=== PATIENT | male | born 1955 | race Caucasian/White ===

== ENCOUNTER 2024-10-10 11:02 | Outpatient (OUT) | payer MEDICARE, OTHER, SELFPAY ==
[2024-10-10 12:32] LABS: Prostate Specific Antigen Scrn 2.91 ng/mL (<=4.00)
== END 2024-10-10 11:03 | disposition home or self-care (01) ==
PROVIDERS: PCP Internal Medicine; Visit Provider Internal Medicine
DX: Z12.5 Encounter for screening for malignant neoplasm of prostate (principal)
CPT/HCPCS: 36415; G0103

== ENCOUNTER 2024-10-31 09:47 | Outpatient (OUT) | payer MEDICARE, OTHER, SELFPAY ==
--- NOTE | 2024-10-31 09:56 | ECG_ITS ---
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 Measurements Intervals Nelson Rate: 64 P: 22 UT: 196 QRS: -19 QRSD: 92 T: 48 QT: 387 QTc: 400 Interpretive Statements SINUS RHYTHM Normal ECG No previous ECG available for comparison Electronically Signed On 10-31-2024 13:15:52 EDT by KOFI GIBBS M.D.
--- OUTSIDE RECORDS SUMMARY | 2024-10-31 10:04 | XMS_ITS | CCD ---
Author Organization [facility] Care Team Providers Care Educational Administrator Name Role Phone OLGAN REYES Primary Care Physician Cher Gregg DR LOGAN REYES Primary Care Unavailable REQUEST, NONE LISTED Attending Unavaila ble REQUEST, NONE LISTED Consulting Unavaila ble REQUEST, NONE LISTED Admitting Unavaila ble LOGAN REYES Referring Unavailable NILLAscencion Attending Unavailable LOGAN REYES Referring Unavailable NILL, Ascencion Bullock Attending Unavailable Allergies Allergy Classification Reported Allergen(s) Allergy Type Date of Onset Reaction(s) Facility (1 source) No Known Medication Allergies; Translations: [No Known Medication Allergies] Propensity to adverse reactions (disorder) [facility] Medications Current Medications Medication Drug Class(es) Dates Sig (Normalized) Sig (Original) Psyllium (1 source) Start: 10-06-2021 take 1 capsule by mouth twice daily Metamucil 1 cap, Oral, BID, Ordered by another provider., Refills(s) 0, Constipation Start Date: 10/06/21 Status: Ordered telmisartan 20 mg oral tablet (2 sources) Angiotensin 2 Receptor Hawa Start: 06-28-2024 take 1 tablet by mouth once daily Telmisartan 20 mg tablet Active 20 MG PO Daily June 28, 2024 12:00am Problems Active Problems Problem Classification Problem Date Documented Date Episodic/Chronic Diabetes mellitus without complication (8 sources) Impaired fasting glycemia; Translations: [Impaired fasting glucose] 09-17-2023 Episodic Disorders of lipid metabolism (8 sources) Pure hypercholesterolemia ; Translations: [Pure hypercholesterolemia , unspecified] 09-21-2023 Chronic Diverticulosis and diverticulitis (2 sources) Diverticula of intestine; Translations: [Diverticulosis of intestine, part unspecified, without perforation or abscess without bleeding] Onset: 12-11-2021 Chronic Essential hypertension (9 sources) Essential hypertension; Translations: [Essential (primary) hypertension] 09-17-2023 Chronic Hemorrhoids (2 sources) Hemorrhoids; Translations: [Unspecified hemorrhoids] Onset: 12-11-2021 Episodic Hyperplasia of prostate (8 sources) Large prostate ; Translations: [Benign prostatic hyperplasia without lower urinary tract symptoms] 09-17-2023 Chronic Other and unspecified benign neoplasm (2 sources) Polyp of colon; Translations: [Polyp of colon] Onset: 12-11-2021 Episodic Other and unspecified benign neoplasm (1 source) History of polyp of colon 10-06-2021 Episodic Other and unspecified benign neoplasm (4 sources) Adenomatous polyp of colon ; Translations: [Benign neoplasm of descending colon] 09-17-2023 Episodic Other and unspecified benign neoplasm (2 sources) Benign neoplasm of descending colon; Translations: [Benign neoplasm of colon] 06-28-2024 Episodic Other diseases of veins and lymphatics (8 sources) Peripheral venous insufficiency; Translations: [Venous insufficiency (chronic) (peripheral)] 09-17-2023 Episodic Other diseases of veins and lymphatics (5 sources) Venous insufficiency (chronic) (peripheral); Translations: [Venous (peripheral) insufficiency, unspecified] 09-21-2023 Episodic Other nutritional; endocrine; and metabolic disorders (2 sources) Morbid obesity; Translations: [Morbid (severe) obesity due to excess calories] 09-17-2023 Chronic Other nutritional; endocrine; and metabolic disorders (2 sources) Obesity; Translations: [Obesity, unspecified] 06-28-2024 Chronic Other nutritional; endocrine; and metabolic disorders (2 sources) Obesity, unspecified; Translations: [Obesity, unspecified] 06-28-2024 Chronic Other screening for suspected conditions (not mental disorders or infectious disease) (4 sources) Encounter for screening for malignant neoplasm of prostate; Translations: [Screening for malignant neoplasms of prostate] 09-21-2023 Episodic Residual codes; unclassified (1 source) Family history of malignant neoplasm of digestive organ; Translations: [Family history of malignant neoplasm of digestive organs] Onset: 12-11-2021 Episodic Residual codes; unclassified (1 source) Family history of cancer of colon 10-06-2021 Episodic Substance-related disorders (4 sources) Tobacco dependence in remission; Translations: [Nicotine dependence, cigarettes, in remission] 09-17-2023 Chronic Unclassified (1 source) Patient encounter status; Translations: [Encounter for health counseling related to travel] Past or Other Problems Problem Classification Problem Date Documented Da te Episodic/Chronic Immunizations and screening for infectious disease (1 source) Contact with and (suspected) exposure to other viral communicable diseases; Translations: [Contact with and (suspected) exposure to other viral communicable diseases Z20.828] Onset: 06-04-2021 Resolved: 06-04-2021 Episodic Other upper respiratory infections (1 source) Acute upper respiratory infection, unspecified; Translations: [Viral upper respiratory illness J06.9] Onset: 06-04-2021 Resolved: 06-04-2021 Episodic Unclassified (1 source) Encounter for health counseling related to travel Onset: 01-21-2022 Resolved: 01-21-2022 Results Test Name Value Interpretation Reference Range Facility General Surgery Office/Clini c Noteon 10-24-2024 General Surgery Office/Clinic Note General Surgery Office/Clinic Note HPI Staff 68 year old male presents on consultation from Dr. Reyes for umbilical hernia. Reports noting bulge approximately 5-6 years ago. Verbalized gradual increase in size. Reports intermittent discomfort. Verbalized this is reducible. Denies nausea, vomiting or bowel changes. No imaging completed. History of Present Illness 68 yo male with h/o htn, bph, referred for enlarging umbilical hernia; patient reports 6 year h/o reducible umbilical hernia, enlarging, sore at times; no imaging, no N/V or bowel changes; no abd operations; no asa or NSAID use; no tobacco use. Review of Systems PHQ Score Initial Depression Screen Score: 0 SCORE ROS - Provider Constitutional: no fever, no sweats, no weight loss. Eyes: yes glasses, no blurred vision, no visual loss. ENMT: no dentures, no hoarseness, no swallowing difficulties, no hearing loss, no ear infection(s), no nose bleeds. Cardiovascular: normal blood pressure, no chest pain, regular heartbeat, no heart murmur. Respiratory: no shortness of breath, no cough, no asthma, no wheezing. Gastrointestinal: no nausea, no vomiting, no diarrhea, no constipation, no blood in stool, no change in bowel habits, no abdominal pain, no hepatitis. Genitourinary: no kidney stones, no urine infection, no dysuria. Musculoskeletal: no pain, no weakness. Skin: no changing moles, no rash, no skin lumps. Neurologic: no seizures, no epilepsy, no headache. Psychiatric: no emotional or psychiatric problem. Heme/Lymph: no bleeding problems, no anemia, no blood clots, no transfusions. Allergy/Immunologic: no swollen lymph nodes/glands, no IV drug abuse. Other: Additional ROS info: Except as noted in the above Review of Systems and in the History of Present Illness, all other systems have been reviewed and are negative or noncontributory. Physical Exam Vitals & Measurements HR: 72(Peripheral) RR: 16 BP: 142/78 HT: 69 in HT: 175.2 cm WT: 128.1 kg WT: 282.412 lb BMI: 41.73 HEENT: normal conjunctiva, sclera clear, no scleral icterus, EOM intact, PERRLA, oral mucosa moist without lesions. Neck: trachea midline, no mass, symmetric, no thyromegaly or nodules, no adenopathy Respiratory: lungs CTA, respirations non labored. Cardiovascular: regular rate and rhythm, no murmur, no pedal edema or varicosities. Gastrointestinal: obese, soft, non distended, no tenderness, no masses, 1.2 cm umbilical defect, reducible 2.5 cm hernia sac, mild tenderness, diastasis recti no, no hepatosplenomegaly; normal bs Lymphatic: no cervical adenopathy, no supraclavicular adenopathy. Musculoskeletal: normal gait, digits and nails without infection, nodes, cyanosis, clubbing. Skin: no rashes, no lesions, no ulcers, no subcutaneous nodules, induration. Psychiatric/Neuro: oriented to time, place, person, judgement normal, affect appropriate for age, insight intact, no focal deficits. Tests: review of old records completed , Discussed surgical options, risks, and possible complications with patient. Assessment/Plan 1. Reducible umbilical hernia (K42.9: Umbilical hernia without obstruction or gangrene) plan primary umbilical herniorrhaphy under anesthesia, informed consent obtained. Ancef 2 gms IV prior to OR SCDs Follow-up No qualifying data available Problem List/Past Medical History Ongoing BMI 40.0-44.9, adult BPH (benign prostatic hyperplasia) Class 3 obesity Diverticulosis Essential hypertension Family history of colon cancer in father Hemorrhoids History of colon polyps Peripheral venous insufficiency Pure hypercholesterolemia Reducible umbilical hernia Historical No qualifying data Procedure/Surgical History Colonoscopy (11/13/2021), Colonoscopy (09/30/2018), Tonsillectomy, Vasectomy. Medications telmisartan 20 mg oral tablet, 20 mg= 1 tab(s), Oral, Daily Allergies No Known Allergies No Known Medication Allergies Social History Alcohol Current. Beer, Liquor. 1-2 times per week., 10/19/2024 Substance Abuse Never., 10/19/2024 Tobacco Never (less than 100 in lifetime) Tobacco Use:. Never Smokeless Tobacco Use:., 10/24/2024 Family History CA - Pancreatic cancer: Sister. Colon cancer: Father. Immunizations Vaccine Date Status SARSCoV2 mRNA(sfqcbwcnu-cjdx-ikms os) vac 09/18/2021 Recorded SARS-CoV-2 (COVID-19) mRNA BNT-162b2 vax 08/28/2021 Recorded Normal [facility] Comment on above: Result Comment: Elec tronically Signed By: ZE KIDD, Ascencion Nobles\Date and Time Signed: 10/24/24 14:22 EDT Basophils Auto (Bld) [#/Vol] on 09-21-2023 Basophils (Bld) [#/Vol] 0.0 10 3/uL 0.0-0.1 [facility] Basophils/100 WBC Auto (Bld) on 09-21-2023 Basophils/100 WBC (Bld) 0.5 % 0.2-2.0 [facility] Cholesterol in LDL Calc [Mas s/Vol]on 09-21-2023 Cholesterol in LDL [Mass/Vol] 120.2 mg/dL [facility] Comment on above: <100 mg/dl [id number] 0-129 mg/dl NEAR OR ABOVE [id number] mg/dl BORDERLINE [id number] mg/dl HIGH>190 mg/dl VERY HIGH Cholesterol in VLDL Calc [Ma ss/Vol]on 09-21-2023 Cholesterol in VLDL [Mass/Vol] 11.8 mg/dL [facility] Eosinophils/100 WBC Auto (Bl d)on 09-21-2023 Eosinophils/100 WBC (Bld) 2.2 % 0.9-7.0 [facility] Erythrocyte distribution wid th Auto (RBC) [Ratio]on 09-21-2023 Erythrocyte distribution width (RBC) [Ratio] 13.6 % 11.0-15.0 [facility] Estimated glomerular filtrat ion rate (GFR) non- Americanon 09-21-2023 GFR/1.73 sq M.predicted among non-blacks MDRD (S/P/Bld) [Vol rate/Area] mL/min/{1.73_m2} >=60 [facility] Globulin Calc (S) [Mass/Vol] on 09-21-2023 Globulin (S) [Mass/Vol] 4.0 g/dL [facility] Glucose mean value [Mass/vol ume] in Blood Estimated from glycated hemoglobinon 09-21-2023 Average glucose Estimated from glycated hemoglobin (Bld) [Mass/Vol] 111 mg/dL [facility] Hematocrit Auto (Bld) [Volum e fraction]on 09-21-2023 Hematocrit (Bld) [Volume fraction] 44.3 % 42.0-54.0 [facility] Hemoglobin [Mass/volume] in Bloodon 09-21-2023 Hemoglobin (Bld) [Mass/Vol] 14.9 g/dL 14.0-18.0 [facility] Laboratory - Chemistry and C hemistry - challengeon 09-21-2023 Albumin [Mass/Vol] 3.7 g/dL 3.4-5.0 [facility] ALP [Catalytic activity/Vol] 51 U/L 46-116 [facility] ALT [Catalytic activity/Vol] 81 U/L 16-63 [facility] AST [Catalytic activity/Vol] 46 U/L 15-37 [facility] Bilirubin [Mass/Vol] 0.9 mg/dL 0.2-1.0 [facility] Calcium [Mass/Vol] 9.0 mg/dL 8.5-10.1 [facility] Chloride [Moles/Vol] 107 mmol/L 98-107 [facility] Cholesterol [Mass/Vol] 183 mg/dL <=200 [facility] Cholesterol in HDL [Mass/Vol] 51 mg/dL 40-60 [facility] Comment on above: > or =60 mg/dl - LOW CARDIOVASCULAR RISK<40 mg/dl - HIGH CARDIOVASCULAR RISK CO2 [Moles/Vol] 27.2 mmol/L 21.0-32.0 [facility] Creatinine [Mass/Vol] 0.93 mg/dL 0.70-1.30 [facility] GFR/1.73 sq M.predicted MDRD (S/P/Bld) [Vol rate/Area] mL/min/{1.73_m2} >=60 [facility] Glucose [Mass/Vol] 92 mg/dL 74-106 [facility] Potassium [Moles/Vol] 4.4 mmol/L 3.5-5.1 [facility] Protein [Mass/Vol] 7.7 g/dL 6.4-8.2 [facility] Sodium [Moles/Vol] 143 mmol/L 136-145 [facility] Triglyceride [Mass/Vol] 59 mg/dL <=150 [facility] Urea nitrogen [Mass/Vol] 17.0 mg/dL 7.0-18.0 [facility] Urea nitrogen/Creatinine [Mass ratio] 18.3 mg/mg [facility] Laboratory - Hematology and Cell countson 09-21-2023 HbA1c (Bld) [Mass fraction] 5.5 % 4.5-6.2 [facility] Comment on above: ADA RECOMMENDED LIMI T 4.0 - 6.0ADA THERAPEUTIC TARGET < 7.0ACTION SUGGESTED> 7.0 Immature granulocytes/100 WBC (Bld) 0.4 % 0.0-0.5 [facility] Leukocytes [#/volume] correc pedro for nucleated erythrocytes in Blood by Automated counon 09-21-2023 WBC corrected for nucl RBC Auto (Bld) [#/Vol] 7.4 10 3/uL 4.0-11.0 [facility] Lymphocytes Auto (Bld) [#/Vo l]on 09-21-2023 Lymphocytes (Bld) [#/Vol] 2.2 10 3/uL 1.2-3.8 [facility] Lymphocytes/100 WBC Auto (Bl d)on 09-21-2023 Lymphocytes/100 WBC (Bld) 29.9 % 20.5-60.0 [facility] MCH Auto (RBC) [Entitic mass ]on 09-21-2023 MCH (RBC) [Entitic mass] 32.2 pg 25.9-34.0 [facility] MCHC Auto (RBC) [Mass/Vol]on 09-21-2023 MCHC (RBC) [Mass/Vol] 33.6 g/dL 29.9-35.2 [facility] MCV Auto (RBC) [Entitic vol] on 09-21-2023 MCV (RBC) [Entitic vol] 95.7 fL 80.0-94.0 [facility] Monocytes Auto (Bld) [#/Vol] on 09-21-2023 Monocytes (Bld) [#/Vol] 0.8 10 3/uL 0.3-0.8 [facility] Monocytes/100 WBC Auto (Bld) on 09-21-2023 Monocytes/100 WBC (Bld) 11.2 % 1.7-12.0 [facility] Neutrophils Auto (Bld) [#/Vo l]on 09-21-2023 Neutrophils (Bld) [#/Vol] 4.2 10 3/uL 1.4-6.5 [facility] Neutrophils/100 WBC Auto (Bl d)on 09-21-2023 Neutrophils/100 WBC (Bld) 55.8 % 43.0-75.0 [facility] No Panel Informationon 09-21 Eosinophils # (Auto) 0.2 10 3/uL 0.0-0.7 [facility] Immature Granulocyte # (Auto) 0.03 10 3/uL 0.00-0.03 [facility] Nucleated Red Blood Cells/100 WBC 0 [facility] Prostate Specific Antigen Screen 2.32 ng/mL <=4.00 [facility] Platelet mean volume Auto (B ld) [Entitic vol]on 09-21-2023 Platelet mean volume (Bld) [Entitic vol] 9.5 fL 9.5-13.5 [facility] Platelets Auto (Bld) [#/Vol] on 09-21-2023 Platelets (Bld) [#/Vol] 186 10 3/uL 150-450 [facility] RBC Auto (Bld) [#/Vol]on RBC (Bld) [#/Vol] 4.63 10 6/uL 4.70-6.10 [facility] Serum or plasma albumin/glob ulin mass ratioon 09-21-2023 Albumin/Globulin [Mass ratio] 0.9 {ratio} [facility] Serum or plasma anion gap de terminationon 09-21-2023 Anion gap [Moles/Vol] 13.2 mmol/L [facility] Serum or plasma total choles terol/high density lipoprotein (HDL) cholesterol mass consuelo 09-21-2023 Cholesterol.total/C holesterol in HDL [Mass ratio] 3.6 {ratio} [facility] Comment on above: 3.3 - 4.4 LOW RISK4. 4 - 7.1 AVERAGE RISK7.1 - 11.0 MODERATE RISK>11.0 HIGH RISK CBC AUTO DIFFon 09-23-2022 BASO # 0.0 103/ul Normal 0.0-0.1 [facility] Comment on above: Performed By: #### D ATCBC #### [facility] [address] [place] [address] Dr. Rhea Alexandre Basophils/100 WBC (Bld) 0.5 % Normal 0.2-2.0 [facility] Comment on above: Performed By: #### D ATCBC #### [facility] [address] [place] [address] Dr. Rhea lAexandre EO # 0.1 103/ul Normal 0.0-0.7 [facility] Comment on above: Performed By: #### D ATCBC #### [facility] [address] [place] [address] Dr. Rhea Alexandre Eosinophils/100 WBC (Bld) 2.0 % Normal 0.9-7.0 [facility] Comment on above: Performed By: #### D ATCBC #### [facility] [address] [place] [address] Dr. Rhea Alexandre Erythrocyte distribution width (RBC) [Ratio] 13.3 % Normal 11.0-15.0 [facility] Comment on above: Performed By: #### D ATCBC #### [facility] [address] [place] [address] Dr. Rhea Alexandre Hematocrit (Bld) [Volume fraction] 44.8 % Normal 42.0-54.0 [facility] Comment on above: Performed By: #### D ATCBC #### [facility] [address] [address] [address] Rhea Alexandre Hemoglobin (Bld) [Mass/Vol] 15.4 g/dL Normal 14.0-18.0 [facility] Comment on above: Performed By: #### D ATCBC #### [facility] [address] [address] [address] Rhea Alexandre IG # 0.01 10e3/ul Normal 0.00-0.03 [facility] Comment on above: Performed By: #### D ATCBC #### [facility] [address] [place] [address] Dr. Rhea Alexandre IG % 0.2 % Normal 0.0-0.5 [facility] Comment on above: Performed By: #### D ATCBC #### [facility] [address] [place] [address] Dr. Rhea Alexandre LYMPH # 2.4 103/ul Normal 1.2-3.8 [facility] Comment on above: Performed By: #### D ATCBC #### [facility] [address] [place] [address] Dr. Rhea Alexandre Lymphocytes/100 WBC (Bld) 36.6 % Normal 20.5-60.0 [facility] Comment on above: Performed By: #### D ATCBC #### [facility] [address] [place] [address] Dr. Rhea Alexandre MCH (RBC) [Entitic mass] 32.0 pg Normal 25.9-34.0 [facility] Comment on above: Performed By: #### D ATCBC #### [facility] [address] [place] [address] Dr. Rhea Alexandre MCHC (RBC) [Mass/Vol] 34.4 g/dL Normal 29.9-35.2 [facility] Comment on above: Performed By: #### D ATCBC #### [facility] [address] [address] [address] Rhea Alexandre MCV (RBC) [Entitic vol] 92.9 fL Normal 80.0-94.0 [facility] Comment on above: Performed By: #### D ATCBC #### [facility] [address] [address] [address] Rhea Alexandre MONO # 0.8 103/ul Normal 0.3-0.8 [facility] Comment on above: Performed By: #### D ATCBC #### [facility] [address] [place] [address] Dr. Rhea Alexandre Monocytes/100 WBC (Bld) 11.9 % Normal 1.7-12.0 [facility] Comment on above: Performed By: #### D ATCBC #### [facility] [address] [place] [address] Dr. Rhea Alexandre NEUT # 3.2 103/ul Normal 1.4-6.5 [facility] Comment on above: Performed By: #### D ATCBC #### [facility] [address] [place] [address] Dr. Rhea Alexandre Neutrophils/100 WBC (Bld) 48.8 % Normal 43.0-75.0 [facility] Comment on above: Performed By: #### D ATCBC #### [facility] [address] [place] [address] Dr. Rhea Alexandre Platelet mean volume (Bld) [Entitic vol] 9.6 fL Normal 9.5-13.5 [facility] Comment on above: Performed By: #### D ATCBC #### [facility] [address] [place] [address] Dr. Rhea Alexandre PLT 193 103/ul Normal 150-450 [facility] Comment on above: Performed By: #### D ATCBC #### [facility] [address] [place] [address] Dr. Rhea Aleaxndre RBC 4.82 106/ul Normal 4.70-6.10 [facility] Comment on above: Performed By: #### D ATCBC #### [facility] [address] [place], [place] [id number] Dr. Rhea Alexandre WBC 6.5 103/ul Normal 4.0-11.0 [facility] Comment on above: Performed By: #### D ATCBC #### [facility] [address] [place] [address] Dr. Rhea Alexandre RAHUL- BMP WITH LIPIDon 2022 Anion gap [Moles/Vol] 10.9 mmol/L Normal [facility] Comment on above: Performed By: #### D ATBMP, DATPSA #### [facility] [address] [place] [address] Dr. Rhea Alexandre Calcium [Mass/Vol] 9.1 mg/dL Normal 8.5-10.1 [facility] Comment on above: Performed By: #### D ATBMP, DATPSA #### [facility] [address] [place] [address] Dr. Rhea Alexandre Chloride [Moles/Vol] 104 mmol/L Normal 98-107 [facility] Comment on above: Performed By: #### D ATBMP, DATPSA #### [facility] [address] [place] [address] Dr. Rhea Alexandre Cholesterol [Mass/Vol] 155 mg/dL Normal <=200 [facility] Comment on above: Performed By: #### D ATBMP, DATPSA #### [facility] [address] [place] [address] Dr. Rhea Alexandre Cholesterol in HDL [Mass/Vol] 50 mg/dL Normal 40-60 [facility] Comment on above: Performed By: #### D ATBMP, DATPSA #### [facility] [address] [place] [address] Dr. Rhea Alexandre Cholesterol in LDL [Mass/Vol] 93.4 mg/dL Normal [facility] Comment on above: Performed By: #### D ATBMP, DATPSA #### [facility] [address] [place] [address] Dr. Rhea Alexandre CO2 [Moles/Vol] 29.5 mmol/L Normal 21.0-32.0 [facility] Comment on above: Performed By: #### D ATBMP, DATPSA #### [facility] [address] [address] [address] Rhea Alexandre Creatinine [Mass/Vol] 0.89 mg/dL Normal 0.70-1.30 [facility] Comment on above: Performed By: #### D ATBMP, DATPSA #### [facility] [address] [address] [address] Rhea Alexandre EGFR-AF MALAGASY >60 Normal >=60 [facility] Comment on above: Performed By: #### D ATBMP, DATPSA #### [facility] [address] [address] [address] Rhea Alexandre EGFR-NON AF MALAGASY >60 Normal >=60 [facility] Comment on above: Performed By: #### D ATBMP, DATPSA #### [facility] [address] [address] [address] Rhea Alexandre Glucose [Mass/Vol] 102 mg/dL Normal 74-106 [facility] Comment on above: Performed By: #### D ATBMP, DATPSA #### [facility] [address] [address] [address] Rhea Alexandre HDL NORMAL > or = 60 mg/dl - LO W CARDIOVASCULAR RISK <40 mg/dl - HIGH CARDIOVASCULAR RISK Normal [facility] Comment on above: Performed By: #### D ATBMP, DATPSA #### [facility] [address] [address] [address] Rhea Alexandre LDL CALC NORMAL SEE BELOW Normal [facility] Comment on above: Result Comment: <100 mg/dl OPTIMAL 100 - 129 mg/dl NEAR OR ABOVE OPTIMAL 130 - 159 mg/dl BORDERLINE HIGH 160 - 189 mg/dl HIGH >190 mg/dl VERY HIGH Performed By: #### D ATBMP, DATPSA #### [facility] [facility] [address] [address] [address] Rhea Alexandre Potassium [Moles/Vol] 4.4 mmol/L Normal 3.5-5.1 [facility] Comment on above: Performed By: #### D ATBMP, DATPSA #### [facility] [address] [address] [address] Rhea Alexandre Sodium [Moles/Vol] 140 mmol/L Normal 136-145 [facility] Comment on above: Performed By: #### D ATBMP, DATPSA #### [facility] [address] [address] [address] Rhea Alexandre Triglyceride [Mass/Vol] 58 mg/dL Normal <=150 [facility] Comment on above: Performed By: #### D ATBMP, DATPSA #### [facility] [address] [address] [address] Rhea Alexandre Urea nitrogen [Mass/Vol] 18.0 mg/dL Normal 7.0-18.0 [facility] Comment on above: Performed By: #### D ATBMP, DATPSA #### [facility] [address] [place] [address] Dr. Rhea Alexandre Urea nitrogen/Creatinine [Mass ratio] 20.2 mg/mg Normal [facility] Comment on above: Performed By: #### D ATBMP, DATPSA #### [facility] [address] [address] [address] Rhea Alexandre VLDL CALC 11.6 mg/dL Normal [facility] Comment on above: Performed By: #### D ATBMP, DATPSA #### [facility] [address] [address] [address] Rhea Alexandre COVID Quick Testingon 2021 Result Negative [facility] Other COVID Quick Testingon 2020 Result Negative [facility] Other Vital Signs Date Time Vital Sign Value Performing Clinician Facility 10-10-2024 10:05-0500 Body height 175.26 cm [facility] 10-10-2024 10:05-0500 Body mass index (BMI) [Ratio] 40.8 kg/m2 [facility] 10-10-2024 10:05-0500 Body temperature 98.1 [degF] [facility] 10-10-2024 10:05-0500 Body weight 125.64 kg [facility] 10-10-2024 10:05-0500 Diastolic blood pressure 72 mm[Hg] [facility] 10-10-2024 10:05-0500 Heart rate 84 /min [facility] 10-10-2024 10:05-0500 SaO2% (BldA) [Mass fraction] 97 % [facility] 10-10-2024 10:05-0500 Systolic blood pressure 128 mm[Hg] [facility] 06-28-2024 10:10-0500 Body height 175.26 cm [facility] 06-28-2024 10:10-0500 Body mass index (BMI) [Ratio] 40.8 kg/m2 [facility] 06-28-2024 10:10-0500 Body weight 125.64 kg [facility] 06-28-2024 10:10-0500 Diastolic blood pressure 80 mm[Hg] [facility] 06-28-2024 10:10-0500 Heart rate 71 /min [facility] 06-28-2024 10:10-0500 Respiratory rate 12 /min [facility] 06-28-2024 10:10-0500 Systolic blood pressure 160 mm[Hg] [facility] 12-20-2023 08:57-0400 Body height 175.26 cm [facility] 12-20-2023 08:57-0400 Body mass index (BMI) [Ratio] 40.4 kg/m2 [facility] 12-20-2023 08:57-0400 Body weight 124.05 kg [facility] 12-20-2023 08:57-0400 Diastolic blood pressure 88 mm[Hg] [facility] 12-20-2023 08:57-0400 Heart rate 64 /min [facility] 12-20-2023 08:57-0400 Respiratory rate 12 /min [facility] 12-20-2023 08:57-0400 Systolic blood pressure 159 mm[Hg] [facility] 09-21-2023 09:08-0500 Body height 175.26 cm [facility] 09-21-2023 09:08-0500 Body mass index (BMI) [Ratio] 42.2 kg/m2 [facility] 09-21-2023 09:08-0500 Body weight 129.72 kg [facility] 09-21-2023 09:08-0500 Diastolic blood pressure 94 mm[Hg] [facility] 09-21-2023 09:08-0500 Heart rate 67 /min [facility] 09-21-2023 09:08-0500 Systolic blood pressure 165 mm[Hg] [facility] 12-11-2021 14:56-0400 Diastolic blood pressure 80 mm[Hg] Yasemin Paul [facility] 12-11-2021 14:56-0400 Mean blood pressure 101 mm[Hg] Yasemin Paul [facility] 12-11-2021 14:56-0400 Systolic blood pressure 142 mm[Hg] Yasemin Paul [facility] 12-11-2021 14:52-0400 Blood Pressure Location Yasemin Paul [facility] 12-11-2021 14:52-0400 Body temperature 98.06 [degF] Yasemin Paul [facility] 12-11-2021 14:52-0400 Diastolic blood pressure 84 mm[Hg] Yasemin Paul [facility] 12-11-2021 14:52-0400 Heart rate 81 /min Yasemin Paul [facility] 12-11-2021 14:52-0400 SaO2% (BldA) [Mass fraction] 92 % Yasemin Miller [facility] 12-11-2021 14:52-0400 Systolic blood pressure 148 mm[Hg] Yasemin Miller [facility] 06-04-2021 11:30-0400 Body height 175.26 cm Cher Stewartmond Other [email or web address] Other 06-04-2021 11:30-0400 Body mass index (BMI) [Ratio] 41.34 kg/m2 Cher Marysol Other [email or web address] Other 06-04-2021 11:30-0400 Body temperature 96.8 [degF] Cher Gregg Other [email or web address] Other 06-04-2021 11:30-0400 Body weight 127.01 kg Cher Gregg Other [email or web address] Other 06-04-2021 11:30-0400 Respiratory rate 18 /min Cher Marysol Other [email or web address] Other 06-04-2021 11:30-0400 SaO2% (BldA) [Mass fraction] 97 % Cher Marysol Other [email or web address] Other Encounters Encounter Date Encounter Type Care Provider Facility Start: 10-24-2024 End: 10-24-2024 ambulatory LOGAN BALL Facility: [facility] Start: 10-12-2024 ambulatory LOGAN BALL Facility: [facility] Start: 10-10-2024 End: 10-10-2024 ambulatory [facility] Work Phone: Start: 10-10-2024 End: 10-10-2024 Patient encounter procedure [facility] Work Phone: Start: 10-08-2024 Patient encounter procedure [facility] Start: 06-28-2024 End: 06-28-2024 ambulatory [facility] Work Phone: Start: 06-28-2024 End: 06-28-2024 Patient encounter procedure [facility] Work Phone: Start: 06-21-2024 Non-patient / Non-visit [facility] Work Phone: Start: 12-20-2023 End: 12-20-2023 ambulatory [facility] Work Phone: Start: 12-20-2023 End: 12-20-2023 Patient encounter procedure [facility] Work Phone: Start: 09-21-2023 End: 09-21-2023 ambulatory [facility] Work Phone: Start: 09-21-2023 End: 09-21-2023 [facility] Work Phone: Start: 09-23-2022 End: 09-24-[address] LOGAN REYES Facility:[facility] Start: 01-21-2022 End: 01-21-2022 ambulatory Cher Gregg Other [employer] [employer] Other Start: 01-21-2022 Nursing evaluation o f patient and report Cher Gregg [facility] Start: 12-11-2021 End: 12-11-2021 Patient encounter procedure Yasemin Miller [facility] Start: 06-04-2021 (URG) Urgent Care Visit Cher Gregg [facility] Procedures Date Procedure Procedure Detail Performing Clinician Start: 09-23-[address] PRIETO [facility] Comment on above: Performed By: #### D ATBMP, DATPSA #### [facility] [address] [address] [address] Rhea Alexandre Start: 09-30-2018 Colonoscopy Yasemin lindaz Comment on above: POLYPS X 3 Plan of Treatment Date Care Activity Detail Author Comprehensive metabo lic 2000 panel - Serum or Plasma [facility] Immunizations Immunization Date Immunization Notes Care Provider Fa cility 08-28-2021 COVID-19 mRNA, Comir rui (Pfizer) [facility] Payers Date Payer Category Payer Unknown [id number] 1958 Self-pay 1955 Unknown [id number] 1955 Unknown [id number] [facility] [id number] Medicare [id number] Unknown [id number] Social History Date Type Detail Facility Start: 12-11-2021 Tobacco smoking status Never s moked tobacco (finding) [facility] Other Tobacco smoking status Never [facility] Sex Assigned At Male SPARQ [facility] Other Start: 09-17-2023 End: 09-17-2023 Tobacco smoking status NHIS Ex-smoker (finding) [facility] Start: 1955 Sex Assigned At Male [facility] Start: 06-28-2024 End: 10-10-2024 Sex Male (finding) [facility] Evaluation note 01-21-2022 Note Date & Type Note Facility 01-21-2022 Evaluation note Encounter Date Diagnosis Assessment Notes Jan, Travel advice encounter (ICD-10 - Z71.84) [email or web address] Other Hospital Discharge instructions 12-11-2021 Note Date & Type Note Facility 12-11-2021 Hospital Discharg e instructions Patient Education 12/11/2021 15:06:51 Colon Polyps Colon Polyps Polyps are tissue growths inside the body. Polyps can grow in many places, including the large intestine (colon). A polyp may be a round bump or a mushroom-shaped growth. You could have one polyp or several. Most colon polyps are noncancerous (benign). However, some colon polyps can become cancerous over time. Finding and removing the polyps early can help prevent this. What are the causes? The exact cause of colon polyps is not known. What increases the risk? You are more likely to develop this condition if you: Have a family history of colon cancer or colon polyps. Are older than 50 or older than 45 if you are . Have inflammatory bowel disease, such as ulcerative colitis or Crohn's disease. Have certain hereditary conditions, such as: ?Familial adenomatous polyposis. ?Lopez syndrome. ?Turcot syndrome. ?Peutz Jeghers syndrome. Are overweight. Smoke cigarettes. Do not get enough exercise. Drink too much alcohol. Eat a diet that is high in fat and red meat and low in fiber. Had childhood cancer that was treated with abdominal radiation. What are the signs or symptoms? Most polyps do not cause symptoms. If you have symptoms, they may include: Blood coming from your rectum when having a bowel movement. Blood in your stool. The stool may look dark red or black. Abdominal pain. A change in bowel habits, such as constipation or diarrhea. How is this diagnosed? This condition is diagnosed with a colonoscopy. This is a procedure in which a lighted, flexible scope is inserted into the anus and then passed into the colon to examine the area. Polyps are sometimes found when a colonoscopy is done as part of routine cancer screening tests. How is this treated? Treatment for this condition involves removing any polyps that are found. Most polyps can be removed during a colonoscopy. Those polyps will then be tested for cancer. Additional treatment may be needed depending on the results of testing. Follow these instructions at home: Lifestyle Maintain a healthy weight, or lose weight if recommended by your health care provider. Exercise every day or as told by your health care provider. Do not use any products that contain nicotine or tobacco, such as cigarettes and e-cigarettes. If you need help quitting, ask your health care provider. If you drink alcohol, limit how much you have: ?0 1 drink a day for women. ? 0 2 drinks a day for men. Be aware of how much alcohol is in your drink. In the [place] one drink equals one 12 oz bottle of beer (355 mL), one 5 oz glass of wine (148 mL), or one 1 oz shot of hard liquor (44 mL). Eating and drinking Eat foods that are high in fiber, such as fruits, vegetables, and whole grains. Eat foods that are high in calcium and vitamin D, such as milk, cheese, yogurt, eggs, liver, fish, and broccoli. Limit foods that are high in fat, such as fried foods and desserts. Limit the amount of red meat and processed meat you eat, such as hot dogs, sausage, lees, and lunch meats. General instructions Keep all follow-up visits as told by your health care provider. This is important. ?This includes having regularly scheduled colonoscopies. ?Talk to your health care provider about when you need a colonoscopy. Contact a health care provider if: You have new or worsening bleeding during a bowel movement. You have new or increased blood in your stool. You have a change in bowel habits. You lose weight for no known reason. Summary Polyps are tissue growths inside the body. Polyps can grow in many places, including the colon. Most colon polyps are noncancerous (benign), but some can become cancerous over time. This condition is diagnosed with a colonoscopy. Treatment for this condition involves removing any polyps that are found. Most polyps can be removed during a colonoscopy. This information is not intended to replace advice given to you by your health care provider. Make sure you discuss any questions you have with your health care provider. Document Released: 04/21/2005 Document Revised: 11/10/2018 Document Reviewed: 11/10/2018 [employer] Patient Education 2020 [employer]. Follow Up Care 12/08/2021 14:58:10 With:Yasemin Miller CNP Address: When:1 year only if needed [facility] Evaluation note 06-04-2021 Note Date & Type Note Facility 06-04-2021 Evaluation note Encounter Date Diagnosis Assessment Notes May, Contact with and (suspected) exposure to other viral communicable diseases (ICD-10 - Z20.828) May, Viral upper respiratory illness (ICD-10 - J06.9) May, Other Additional time spent conducting pre-visit phone call, screening for symptoms, instructions on social distancing, application and removal of PPE, and cleaning of examination room, equipment and supplies was preformed. Patient education given for testing methodology and results. Patient care instructions given in writting by [facility] document. [email or web address] Other Evaluation + Plan note Note Date & Type Note Facility Evaluation + Plan note No data available for this section [facility] Evaluation note Note Date & Type Note Facility Evaluation note Diagnosis Onset Date Chronic venous insufficiency acute IFG (impaired fasting glucose) acute Primary hypertension acute Pure hypercholesterolemia, unspecified acute Screening PSA (prostate specific antigen) noneactive [facility] Work Phone: Evaluation note Note Date & Type Note Facility Evaluation note Diagnosis Onset Date Chronic venous insufficiency acute IFG (impaired fasting glucose) acute Primary hypertension acute Pure hypercholesterolemia, unspecified acute Medicare annual wellness visit, initial noneactive Screening PSA (prostate specific antigen) noneactive Chronic venous insufficiency acute Primary hypertension acute [facility] Work Phone: Evaluation note Note Date & Type Note Facility Evaluation note Diagnosis Onset Date Resolution Adenomatous polyp of descending colon acute June 28, 2024 9:52am Chronic venous insufficiency acute June 28, 2024 9:52am Hypercholesterolemia acute 2023 9:52am IFG (impaired fasting glucose) acute June 28, 2024 9:52am Obesity acute June 28, 2024 9:52am Primary hypertension acute 2023 9:52am [facility] Work Phone: Evaluation note Note Date & Type Note Facility Evaluation note Diagnosis Onset Date Resolution Adenomatous polyp of descending colon acute October 10, 2024 9:53am Chronic venous insufficiency acute October 10, 2024 9:53am Hypercholesterolemia acute 2024 9:53am IFG (impaired fasting glucose) acute October 10, 2024 9:53am Medicare annual wellness visit, subsequent acute October 10 9:53am Obesity acute October 10 9:53am Primary hypertension acute 2024 9:53am Screening PSA (prostate specific antigen) acute October 10 9:53am [facility] Work Phone: History general Narrative - Reported Note Date & Type Note Facility History general Narrative - Reported Type Surgical History vasectomy Surgical History tonsillectomy Hospitalization History see above [email or web address] Other Summary Purpose Family History No Family History Records Found Relationship Condition Age at Onset Recorded Date/T dewayne father Unknown Malignant neoplasm Unknown Not Specified Unknown Heart disease Unknown Myocardial infarction Unknown Relationship Condition Age at Onset Recorded Date/T dewayne father Unknown Malignant neoplasm Unknown mother Unknown Heart disease Unknown Myocardial infarction Unknown Advance Directives No Advanced Directives Records Found Advance Directive Response Recorded Date/ Time Advance Directives No August 28, 2023 10:17am Advance Directive Response Recorded Date/ Time Advance Directives No August 28, 2023 11:17am Chief Complaint and Reason for Visit Chief Complaint MCR Wellness Reason for Visit Chronic venous insuf ficiency IFG (impaired fasting glucose) Primary hypertension Pure hypercholesterolemia, unspecified Screening PSA (prostate specific antigen) Chief Complaint MCR Wellness 3 month follow up Reason for Visit Chronic venous insuf ficiency IFG (impaired fasting glucose) Primary hypertension Pure hypercholesterolemia, unspecified Medicare annual wellness visit, initial Screening PSA (prostate specific antigen) Chronic venous insufficiency Primary hypertension Chief Complaint Admit Date CC Adult Risk Stratification June [id number] 1:32pm 6 month f/u June 28, 2024 9:52am Reason for Visit Admit Date Adenomatous polyp of descending colon No [email or web address] 9:52am Chronic venous insufficiency June 282023 9:52am Hypercholesterolemia June 28, 2024 9:52am IFG (impaired fasting glucose) June 28, 2024 9:52am Obesity June 28, 2024 9:52am Primary hypertension June 28, 2024 9:52am Chief Complaint Admit Date Wellness October 10, 2024 9:53 am Reason for Visit Admit Date Adenomatous polyp of descending colon [facility] 2024 9:53am Chronic venous insufficiency October 10, 2024 9:53am Hypercholesterolemia October 10, 2024 9:5 3am IFG (impaired fasting glucose) October 9:53am Medicare annual wellness visit, subseque nt October 10, 2024 9:53am Obesity October 10, 2024 9:53 am Primary hypertension October 10, 2024 9:5 3am Screening PSA (prostate specific antigen ) October 10, 2024 9:53am Additional Source Comments REASON FOR VISIT (unrecogniz ed section and content) #7 MAROON DODGE, COUGH, RUNN Y NOSECOVID TEST, DENIES SXS (unrecognized sect ion and content) No Status Records FoundNo Status Records Found INFORMATION SOURCE (unrecogn ized section and content) DATE CREATED AUTHOR 09/24/2022 [facility] DATE CREATED AUTHOR 'S ORGANIZ ATION 10/25/2024 [facility] Teams (unrecognized sec tion and content) Team Status: Active Member Role Status Dates Logan Reyes DO Primary Care Provider Active Team Status: Inactive Member Role Status Dates Logan Reyes DO Primary Care Provide r, Attending Provider Active Start: October 10, 2024 End: October 10, 2024 Team Status: Active Member Role Status Dates Logan Reyes DO Primary Care Provide r, Attending Provider Active Start: June 21, 2024 Team Status: Inactive Member Role Status Dates Logan Reyes DO Primary Care Provide r, Attending Provider Active Start: June 28, 2024 End: June 28, 2024 Team Status: Inactive Member Role Status Dates Logan Reyes DO Primary Care Provide r, Attending Provider Active Start: September 21, 2023 End: September 21, 2023 Team Status: Inactive Member Role Status Dates Logan Reyes DO Primary Care Provide r, Attending Provider Active Start: December 20, 2023 End: December 20, 2023 Goals (unrecognized section and content) Goals may be documented in a n alternate section FOR RECORDS PERTAINING TO PATIENTS WHO ARE OR HAVE BEEN ENROLLED IN A CHEMICAL DEPENDENCY/SUBSTANCEABUSE PROGRAM, SOME INFORMATION MAY BE OMITTED. This clinical summary was aggregated from multiple sources. Caution should be exercised in using it in the provision of clinical care. This summary normalizes information from multiple sources, and as a consequence, information in this document may materially change the coding, format and clinical context of patient data. In addition, data may be omitted in some cases. CLINICAL DECISIONS SHOULD BE BASED ON THE PRIMARY CLINICAL RECORDS. [facility] [facility]. provides no warranty or guarantee of the accuracy or completeness of information in this document.
== END 2024-10-31 09:48 | disposition home or self-care (01) ==
LOC: PST 09:47
PROVIDERS: PCP Internal Medicine; Visit Provider Surgery
DX: Z01.810 Encounter for preprocedural cardiovascular examination (principal); K42.9 Umbilical hernia without obstruction or gangrene
CPT/HCPCS: 93005

== ENCOUNTER 2024-11-08 07:57 | Day surgery (SDC) | payer MEDICARE, OTHER, SELFPAY ==
[2024-10-31 10:18] VITALS: BP 141/81; PULSE 69; TEMP 36.4; O2SAT 98; BMI 38.8
[2024-11-08] VITALS (8 sets, daily range): BP systolic 119–163; BP diastolic 59–106; PULSE 68–72; TEMP 36.5–36.7; O2SAT 95–99; BMI 39.6
--- NOTE | 2024-11-08 | OP_ITS ---
OPERATION DATE: 11/08/2024 PREOPERATIVE DIAGNOSIS: Umbilical hernia. POSTOPERATIVE DIAGNOSIS: Umbilical hernia. PROCEDURE: Primary umbilical herniorrhaphy. SURGEON: Ascencion Guillory M.D. ANESTHESIA: General endotracheal as well as rectus sheath block per Dr. Jha. ESTIMATED BLOOD LOSS: Less than 20 mL. INDICATIONS AND CONSENT: Patient is a 68-year-old male with a long history of reducible umbilical hernia that has become increasingly symptomatic. Indications, risks, benefits, alternatives of proceeding with primary repair due to the defect being 1.5 cm was explained extensively to the patient, including the risks of bleeding, infection, scarring, pain, recurrence, bowel injury, blood clot, pulmonary embolus, heart attack, anesthetic complications, need for further surgery. All of his questions were answered. Informed consent was obtained. PROCEDURE: Patient brought to the operating room, placed in the supine position. He had previously undergone rectus sheath block in the pre-op area. General anesthesia was induced. He was prepped and draped in the usual sterile fashion. A curvilinear incision was made in the superior aspect of the umbilicus using the scalpel blade and carried down through subcutaneous tissue using sharp dissection as well as electrocautery. This was carried down to the fascia. The fascial defect was freed up circumferentially. The hernia sac was freed up and detached from the umbilicus. It did contain a small amount of incarcerated omentum, which was freed up and reduced into the abdomen. The excess sac was then excised and sent off to Pathology. The incision was then closed transversely with interrupted #1 Prolene sutures, as well as interrupted 0 Vicryl sutures. The wound was irrigated. There was good hemostasis. The subcutaneous tissues were infiltrated with the remaining Exparel solution. The umbilicus was tacked back down to the fascia using 2-0 Monocryl suture. The subcutaneous tissue was re-approximated using interrupted 3-0 Monocryl suture. The skin was closed with a running 4-0 subcuticular Monocryl suture and skin glue. Sterile pressure dressings were applied. Sponge and needle counts were correct x3 per nursing personnel. Patient tolerated procedure well, was extubated and sent to recovery room in good condition. Abdominal binder was applied to the abdomen as well. CC: Dr. Tyler COLE
--- OUTSIDE RECORDS SUMMARY | 2024-11-08 08:12 | XMS_ITS | CCD ---
Author Organization [facility] Care Team Providers Care Specialized Language Instructor Name Role Phone LOGAN REYES Primary Care Physician [phone] LOGAN REYES Primary Care [...] Medication Allergies] Propensity to adverse reactions (disorder) [facility] Repository Medications Current Medications Medication Drug [...] cancer: Father. Immunizations Vaccine Date Status SARSCoV2 mRNA(zpmgjfjbs-yscm-slwt os) vac 09/18/2021 Recorded SARS-CoV-2 (COVID-19) mRNA BNT-162b2 vax 08/28/2021 Recorded Normal Goel [facility] Comment on above: Result Comment: Elec tronically Signed By: ZE KIDD, Ascencion Nobles\Date and Time Signed: 10/24/24 14:22 EDT Basophils Auto (Bld) [#/Vol] on 09-21-2023 Basophils (Bld) [#/Vol] 0.0 10 3/uL 0.0-0.1 [facility] Basophils/100 WBC Auto (Bld) on 09-21-2023 Basophils/100 WBC (Bld) 0.5 % 0.2-2.0 [facility] Cholesterol in LDL Calc [Mas s/Vol]on 09-21-2023 Cholesterol in LDL [Mass/Vol] 120.2 mg/dL [facility] Comment on above: <100 mg/dl [id number] 0-129 mg/dl NEAR OR ABOVE [id number] mg/dl BORDERLINE [id number] mg/dl HIGH>190 mg/dl VERY HIGH Cholesterol in VLDL Calc [Ma ss/Vol]on 09-21-2023 Cholesterol in VLDL [Mass/Vol] 11.8 mg/dL [facility] Eosinophils/100 WBC Auto (Bl d)on 09-21-2023 Eosinophils/100 WBC (Bld) 2.2 % 0.9-7.0 [facility] Erythrocyte distribution wid th Auto (RBC) [Ratio]on 09-21-2023 Erythrocyte distribution width (RBC) [Ratio] 13.6 % 11.0-15.0 [facility] Estimated glomerular filtrat ion rate (GFR) non- Americanon 09-21-2023 GFR/1.73 sq M.predicted among non-blacks MDRD (S/P/Bld) [Vol rate/Area] mL/min/{1.73_m2} >=60 [facility] Globulin Calc (S) [Mass/Vol] on 09-21-2023 Globulin (S) [Mass/Vol] 4.0 g/dL [facility] Glucose mean value [Mass/vol ume] in Blood Estimated from glycated hemoglobinon 09-21-2023 Average glucose Estimated from glycated hemoglobin (Bld) [Mass/Vol] 111 mg/dL [facility] Hematocrit Auto (Bld) [Volum e fraction]on 09-21-2023 Hematocrit (Bld) [Volume fraction] 44.3 % 42.0-54.0 [facility] Hemoglobin [Mass/volume] in Bloodon 09-21-2023 Hemoglobin (Bld) [Mass/Vol] 14.9 g/dL 14.0-18.0 [facility] Laboratory - Chemistry and C hemistry - challengeon 09-21-2023 Albumin [Mass/Vol] 3.7 g/dL 3.4-5.0 [facility] ALP [Catalytic activity/Vol] 51 U/L 46-116 [facility] ALT [Catalytic activity/Vol] 81 U/L 16-63 [facility] AST [Catalytic activity/Vol] 46 U/L 15-37 [facility] Bilirubin [Mass/Vol] 0.9 mg/dL 0.2-1.0 [facility] Calcium [Mass/Vol] 9.0 mg/dL 8.5-10.1 [facility] Chloride [Moles/Vol] 107 mmol/L 98-107 [facility] Cholesterol [Mass/Vol] 183 mg/dL <=200 [facility] Cholesterol in HDL [Mass/Vol] 51 mg/dL 40-60 [facility] Comment on above: > or =60 mg/dl - LOW CARDIOVASCULAR RISK<40 mg/dl - HIGH CARDIOVASCULAR RISK CO2 [Moles/Vol] 27.2 mmol/L 21.0-32.[address] [facility] Creatinine [Mass/Vol] 0.93 mg/dL 0.70-1.30 [facility] GFR/1.73 sq M.predicted MDRD (S/P/Bld) [Vol rate/Area] mL/min/{1.73_m2} >=60 [facility] Glucose [Mass/Vol] 92 mg/dL 74-106 [facility] Potassium [Moles/Vol] 4.4 mmol/L 3.5-5.1 [facility] Protein [Mass/Vol] 7.7 g/dL 6.4-8.2 [facility] Sodium [Moles/Vol] 143 mmol/L 136-145 [facility] Triglyceride [Mass/Vol] 59 mg/dL <=150 [facility] Urea nitrogen [Mass/Vol] 17.0 mg/dL 7.0-18.0 [facility] Urea nitrogen/Creatinine [Mass ratio] 18.3 mg/mg [facility] Laboratory - Hematology and Cell countson 09-21-2023 HbA1c (Bld) [Mass fraction] 5.5 % 4.5-6.2 [facility] Comment on above: ADA RECOMMENDED LIMI T 4.0 - 6.0ADA THERAPEUTIC TARGET < 7.0ACTION SUGGESTED> 7.0 Immature granulocytes/100 WBC (Bld) 0.4 % 0.0-0.5 [facility] Leukocytes [#/volume] correc pedro for nucleated erythrocytes in Blood by Automated counon 09-21-2023 WBC corrected for nucl RBC Auto (Bld) [#/Vol] 7.4 10 3/uL 4.0-11.0 [facility] Lymphocytes Auto (Bld) [#/Vo l]on 09-21-2023 Lymphocytes (Bld) [#/Vol] 2.2 10 3/uL 1.2-3.8 [facility] Lymphocytes/100 WBC Auto (Bl d)on 09-21-2023 Lymphocytes/100 WBC (Bld) 29.9 % 20.5-60.0 [facility] MCH Auto (RBC) [Entitic mass ]on 09-21-2023 MCH (RBC) [Entitic mass] 32.2 pg 25.9-34.0 [facility] MCHC Auto (RBC) [Mass/Vol]on 09-21-2023 MCHC (RBC) [Mass/Vol] 33.6 g/dL 29.9-35.2 [facility] MCV Auto (RBC) [Entitic vol] on 09-21-2023 MCV (RBC) [Entitic vol] 95.7 fL 80.0-94.0 [facility] Monocytes Auto (Bld) [#/Vol] on 09-21-2023 Monocytes (Bld) [#/Vol] 0.8 10 3/uL 0.3-0.8 [facility] Monocytes/100 WBC Auto (Bld) on 09-21-2023 Monocytes/100 WBC (Bld) 11.2 % 1.7-12.0 [facility] Neutrophils Auto (Bld) [#/Vo l]on 09-21-2023 Neutrophils (Bld) [#/Vol] 4.2 10 3/uL 1.4-6.5 [facility] Neutrophils/100 WBC Auto (Bl d)on 09-21-2023 Neutrophils/100 WBC (Bld) 55.8 % 43.0-75.0 [facility] No Panel Informationon 09-21 Eosinophils # (Auto) 0.2 10 3/uL 0.0-0.7 [facility] Immature Granulocyte # (Auto) 0.03 10 3/uL 0.00-0.03 [facility] Nucleated Red Blood Cells/100 WBC 0 [facility] Prostate Specific Antigen Screen 2.32 ng/mL <=4.00 [facility] Platelet mean volume Auto (B ld) [Entitic vol]on 09-21-2023 Platelet mean volume (Bld) [Entitic vol] 9.5 fL 9.5-13.5 [facility] Platelets Auto (Bld) [#/Vol] on 09-21-2023 Platelets (Bld) [#/Vol] 186 10 3/uL 150-450 [facility] RBC Auto (Bld) [#/Vol]on RBC (Bld) [#/Vol] 4.63 10 6/uL 4.70-6.10 [facility] Serum or plasma albumin/glob ulin mass ratioon 09-21-2023 Albumin/Globulin [Mass ratio] 0.9 {ratio} [facility] Serum or plasma anion gap de terminationon 09-21-2023 Anion gap [Moles/Vol] 13.2 mmol/L [facility] Serum or plasma total choles terol/high density lipoprotein (HDL) cholesterol mass consuelo 09-21-2023 Cholesterol.total/C holesterol in HDL [Mass ratio] 3.6 {ratio} [facility] Comment on above: 3.3 - 4.4 LOW RISK4. 4 - 7.1 AVERAGE RISK7.1 - 11.0 MODERATE RISK>11.0 HIGH RISK CBC AUTO DIFFon 09-23-2022 BASO # 0.0 103/ul Normal 0.0-0.1 [facility] Comment on above: Performed By: #### D ATCBC #### [facility] [address] [place] [address] Dr. Rhea Alexandre Basophils/100 WBC (Bld) 0.5 % Normal 0.2-2.0 [facility] Comment on above: Performed By: #### D ATCBC #### [facility] [address] [place] [address] Dr. Rhea Alexandre EO # 0.1 103/ul Normal 0.0-0.7 [facility] Comment on above: Performed By: #### D ATCBC #### [facility] [address] [place] [address] Dr. Rhea Alexandre Eosinophils/100 WBC (Bld) 2.0 % Normal 0.9-7.0 [facility] Comment on above: Performed By: #### D ATCBC #### [facility] [address] [place] [address] Dr. Rhea Alexandre Erythrocyte distribution width (RBC) [Ratio] 13.3 % Normal 11.0-15.0 [facility] Comment on above: Performed By: #### D ATCBC #### [facility] [address] [place] [address] Dr. Rhea Alexandre Hematocrit (Bld) [Volume fraction] 44.8 % Normal 42.0-54.0 [facility] Comment on above: Performed By: #### D ATCBC #### [facility] [address] [address] [address] Rhea Alexandre Hemoglobin (Bld) [Mass/Vol] 15.4 g/dL Normal 14.0-18.0 [facility] Comment on above: Performed By: #### D ATCBC #### [facility] [address] [address] [address] Rhea Alexandre IG # 0.01 10e3/ul Normal 0.00-0.03 [facility] Comment on above: Performed By: #### D ATCBC #### [facility] [address] [place] [address] Dr. Rhea Alexandre IG % 0.2 % Normal 0.0-0.5 [facility] Comment on above: Performed By: #### D ATCBC #### [facility] [address] [place] [address] Dr. Rhea Aleaxndre LYMPH # 2.4 103/ul Normal 1.2-3.8 [facility] Comment on above: Performed By: #### D ATCBC #### [facility] [address] [place] [address] Dr. Rhea Alexandre Lymphocytes/100 WBC (Bld) 36.6 % Normal 20.5-60.0 [facility] Comment on above: Performed By: #### D ATCBC #### [facility] [address] [place] [address] Dr. Rhea Alexandre MCH (RBC) [Entitic mass] 32.0 pg Normal 25.9-34.0 [facility] Comment on above: Performed By: #### D ATCBC #### [facility] [address] [place] [address] Dr. Rhea Alexandre MCHC (RBC) [Mass/Vol] 34.4 g/dL Normal 29.9-35.2 [facility] Comment on above: Performed By: #### D ATCBC #### [facility] [address] [address] [address] Rhea Alexandre MCV (RBC) [Entitic vol] 92.9 fL Normal 80.0-94.0 [facility] Comment on above: Performed By: #### D ATCBC #### [facility] [address] [address] [address] Rhea Alexandre MONO # 0.8 103/ul Normal 0.3-0.8 [facility] Comment on above: Performed By: #### D ATCBC #### [facility] [address] [place] [address] Dr. Rhea Alexandre Monocytes/100 WBC (Bld) 11.9 % Normal 1.7-12.0 [facility] Comment on above: Performed By: #### D ATCBC #### [facility] [address] [place] [address] Dr. Rhea Alexandre NEUT # 3.2 103/ul Normal 1.4-6.5 [facility] Comment on above: Performed By: #### D ATCBC #### [facility] [address] [place] [address] Dr. Rhea Alexandre Neutrophils/100 WBC (Bld) 48.8 % Normal 43.0-75.0 [facility] Comment on above: Performed By: #### D ATCBC #### [facility] [address] [place] [address] Dr. Rhea Alexandre Platelet mean volume (Bld) [Entitic vol] 9.6 fL Normal 9.5-13.5 [facility] Comment on above: Performed By: #### D ATCBC #### [facility] [address] [place] [address] Dr. Rhea Alexnadre PLT 193 103/ul Normal 150-450 [facility] Comment on above: Performed By: #### D ATCBC #### [facility] [address] [place] [address] Dr. Rhea Alexandre RBC 4.82 106/ul Normal 4.70-6.10 [facility] Comment on above: Performed By: #### D ATCBC #### [facility] [address] [place], [place] [id number] Dr. Rhea Alexandre WBC 6.5 103/ul Normal 4.0-11.0 [facility] Comment on above: Performed By: #### D ATCBC #### [facility] [address] [place] [address] Dr. Rhea Alexandre RAHUL- BMP WITH LIPIDon 2022 Anion gap [Moles/Vol] 10.9 mmol/L Normal [facility] Comment on above: Performed By: #### D ATBMP, DATPSA #### [facility] [address] [place] [address] Dr. Rhea Alexandre Calcium [Mass/Vol] 9.1 mg/dL Normal 8.5-10.1 [facility] Comment on above: Performed By: #### D ATBMP, DATPSA #### [facility] [address] [place] [address] Dr. Rhea Alexandre Chloride [Moles/Vol] 104 mmol/L Normal 98-107 [facility] Comment on above: Performed By: #### D ATBMP, DATPSA #### [facility] [address] [place] [address] Dr. Rhea Alexandre Cholesterol [Mass/Vol] 155 mg/dL Normal <=200 [facility] Comment on above: Performed By: #### D ATBMP, DATPSA #### [facility] [address] [place] [address] Dr. Rhea Alexandre Cholesterol in HDL [Mass/Vol] 50 mg/dL Normal 40-60 [facility] Comment on above: Performed By: #### D ATBMP, DATPSA #### [facility] [address] [place] [address] Dr. Rhea Alexandre Cholesterol in LDL [Mass/Vol] 93.4 mg/dL Normal [facility] Comment on above: Performed By: #### D ATBMP, DATPSA #### [facility] [address] [place] [address] Dr. Rhea Alexandre CO2 [Moles/Vol] 29.5 mmol/L Normal 21.0-32.0 [facility] Comment on above: Performed By: #### D ATBMP, DATPSA #### [facility] [address] [address] [address] Rhea Alexandre Creatinine [Mass/Vol] 0.89 mg/dL Normal 0.70-1.30 [facility] Comment on above: Performed By: #### D ATBMP, DATPSA #### [facility] [address] [address] [address] Rhea Alexandre EGFR-AF PANAMANIAN >60 Normal >=60 [facility] Comment on above: Performed By: #### D ATBMP, DATPSA #### [facility] [address] [address] [address] Rhea Alexandre EGFR-NON AF PANAMANIAN >60 Normal >=60 [facility] Comment on above: Performed By: #### D ATBMP, DATPSA #### [facility] [address] [address] [address] Rhea Alexandre Glucose [Mass/Vol] 102 mg/dL Normal 74-106 [facility] Comment on above: Performed By: #### D ATBMP, DATPSA #### [facility] [address] [address] [address] Rhea Alexandre HDL NORMAL > or = 60 mg/dl - LO W CARDIOVASCULAR RISK <40 mg/dl - HIGH CARDIOVASCULAR RISK Normal [facility] Comment on above: Performed By: #### D ATBMP, DATPSA #### [facility] [address] [address] [address] Rhea Alexandre LDL CALC NORMAL SEE BELOW Normal [facility] Comment on above: Result Comment: <100 mg/dl OPTIMAL 100 - 129 mg/dl NEAR OR ABOVE OPTIMAL 130 - 159 mg/dl BORDERLINE HIGH 160 - 189 mg/dl HIGH >190 mg/dl VERY HIGH Performed By: #### D ATBMP, DATPSA #### [facility] [address] [address] [address] Rhea Alexandre Potassium [Moles/Vol] 4.4 mmol/L Normal 3.5-5.1 [facility] Comment on above: Performed By: #### D ATBMP, DATPSA #### [facility] [address] [address] [address] Rhea Alexandre Sodium [Moles/Vol] 140 mmol/L Normal 136-145 [facility] Comment on above: Performed By: #### D ATBMP, DATPSA #### [facility] [address] [address] [address] Rhea Alexandre Triglyceride [Mass/Vol] 58 mg/dL Normal <=150 [facility] Comment on above: Performed By: #### D ATBMP, DATPSA #### [facility] [address] [address] [address] Rhea Alexandre Urea nitrogen [Mass/Vol] 18.0 mg/dL Normal 7.0-18.0 [facility] Comment on above: Performed By: #### D ATBMP, DATPSA #### [facility] [address] [place] [address] Dr. Rhea Alexandre Urea nitrogen/Creatinine [Mass ratio] 20.2 mg/mg Normal [facility] Comment on above: Performed By: #### D ATBMP, DATPSA #### [facility] [address] [address] [address] Rhea Alexandre VLDL CALC 11.6 mg/dL Normal [facility] Comment on above: Performed By: #### D ATBMP, DATPSA #### [facility] [address] [address] [address] Rhea Alexandre COVID Quick Testingon 2021 Result Negative [facility] [employer] Other COVID Quick Testingon 2020 Result Negative [facility] [employer] Other Vital Signs Date Time Vital Sign Value Performing Clinician Facility 10-10-2024 10:05-0500 Body height 175.26 cm [facility] 10-10-2024 10:05-0500 Body mass index (BMI) [Ratio] 40.8 kg/m2 [facility] 10-10-2024 10:05-0500 Body temperature 98.1 [degF] [facility] 10-10-2024 10:05-0500 Body weight 125.64 kg [facility] 10-10-2024 10:05-0500 Diastolic blood pressure 72 mm[Hg] [facility] 10-10-2024 10:05-0500 Heart rate 84 /min [facility] 10-10-2024 10:05-0500 SaO2% (BldA) [Mass fraction] 97 % [facility] 10-10-2024 10:05-0500 Systolic blood pressure 128 mm[Hg] [facility] 06-28-2024 10:10-0500 Body height 175.26 cm [facility] 06-28-2024 10:10-0500 Body mass index (BMI) [Ratio] 40.8 kg/m2 [facility] 06-28-2024 10:10-0500 Body weight 125.64 kg [facility] 06-28-2024 10:10-0500 Diastolic blood pressure 80 mm[Hg] [facility] 06-28-2024 10:10-0500 Heart rate 71 /min [facility] 06-28-2024 10:10-0500 Respiratory rate 12 /min [facility] 06-28-2024 10:10-0500 Systolic blood pressure 160 mm[Hg] [facility] 12-20-2023 08:57-0400 Body height 175.26 cm [facility] 12-20-2023 08:57-0400 Body mass index (BMI) [Ratio] 40.4 kg/m2 [facility] 12-20-2023 08:57-0400 Body weight 124.05 kg [facility] 12-20-2023 08:57-0400 Diastolic blood pressure 88 mm[Hg] [facility] 12-20-2023 08:57-0400 Heart rate 64 /min [facility] 12-20-2023 08:57-0400 Respiratory rate 12 /min [facility] 12-20-2023 08:57-0400 Systolic blood pressure 159 mm[Hg] [facility] 09-21-2023 09:08-0500 Body height 175.26 cm [facility] 09-21-2023 09:08-0500 Body mass index (BMI) [Ratio] 42.2 kg/m2 [facility] 09-21-2023 09:08-0500 Body weight 129.72 kg [facility] 09-21-2023 09:08-0500 Diastolic blood pressure 94 mm[Hg] [facility] 09-21-2023 09:08-0500 Heart rate 67 /min [facility] 09-21-2023 09:08-0500 Systolic blood pressure 165 mm[Hg] [facility] 12-11-2021 14:56-0400 Diastolic blood pressure 80 mm[Hg] Yasemin Paul [facility] 12-11-2021 14:56-0400 Mean blood pressure 101 mm[Hg] Yasemin Paul [facility] 12-11-2021 14:56-0400 Systolic blood pressure 142 mm[Hg] Yasemin Paul [facility] 12-11-2021 14:52-0400 Blood Pressure Location Yasemin Paul [facility] 12-11-2021 14:52-0400 Body temperature 98.06 [degF] Yasemin Paul [facility] 12-11-2021 14:52-0400 Diastolic blood pressure 84 mm[Hg] Yasemin Paul [facility] 12-11-2021 14:52-0400 Heart rate 81 /min Yasemin Paul [facility] 12-11-2021 14:52-0400 SaO2% (BldA) [Mass fraction] 92 % Yasemin Miller [facility] 12-11-2021 14:52-0400 Systolic blood pressure 148 mm[Hg] Yasemin Miller [facility] 06-04-2021 11:30-0400 Body height 175.26 cm Cher Stewartmond Other [employer] Other 06-04-2021 11:30-0400 Body mass index (BMI) [Ratio] 41.34 kg/m2 Cher Marysol Other [employer] Other 06-04-2021 11:30-0400 Body temperature 96.8 [degF] Cher Gregg Other [employer] Other 06-04-2021 11:30-0400 Body weight 127.01 kg Cher Gregg Other [employer] Other 06-04-2021 11:30-0400 Respiratory rate 18 /min Cher Marysol Other [employer] Other 06-04-2021 11:30-0400 SaO2% (BldA) [Mass fraction] 97 % Cher Marysol Other [employer] Other Encounters Encounter Date Encounter Type Care Provider Facility Start: 10-24-2024 End: 10-24-2024 ambulatory LOGAN BALL Facility: [facility] Start: 10-12-2024 ambulatory LOGAN BALL Facility: [facility] Start: 10-10-2024 End: 10-10-2024 ambulatory [facility] Work Phone: Start: 10-10-2024 End: 10-10-2024 Patient encounter procedure [facility] Work Phone: Start: 10-08-2024 Patient encounter procedure [facility] Start: 06-28-2024 End: 06-28-2024 ambulatory [facility] Work Phone: Start: 06-28-2024 End: 06-28-2024 Patient encounter procedure [facility] Work Phone: Start: 06-21-2024 Non-patient / Non-visit [facility] Work Phone: Start: 12-20-2023 End: 12-20-2023 ambulatory [facility] Work Phone: Start: 12-20-2023 End: 12-20-2023 Patient encounter procedure [facility] Work Phone: Start: 09-21-2023 End: 09-21-2023 ambulatory [facility] Work Phone: Start: 09-21-2023 End: 09-21-2023 Patient encounter procedure [facility] Work Phone: Start: 09-23-2022 End: 09-24-[address] LOGAN REYES Facility:[facility] Start: 01-21-2022 End: 01-21-2022 ambulatory Cher Gregg Other [place] [employer] Other Start: 01-21-2022 Nursing evaluation o f patient and report Cher Gregg [facility] Start: 12-11-2021 End: 12-11-2021 Patient encounter procedure Yasemin [facility] Start: 06-04-2021 (URG) Urgent Care Visit Cher Gregg [facility] Procedures Date Procedure Procedure Detail Performing Clinician Start: 09-23-[address] PRIETO [facility] Comment on above: Performed By: #### D ATBMP, DATPSA #### [facility] [address] [address] [address] Rhea Alexandre Start: 09-30-2018 Colonoscopy Yasemin lindaz Comment on above: POLYPS X 3 Plan of Treatment Date Care Activity Detail Author Comprehensive metabo lic 2000 panel - Serum or Plasma [facility] enter [facility] Immunizations Immunization Date Immunization Notes Care Provider Fa cility 08-28-2021 COVID-19 mRNA, Comir rui (Pfizer) [facility] Payers Date Payer Category Payer Unknown [id number] Self-pay 1955 Unknown [id number] [id number] 1955 Unknown [id number] [facility] [id number] Medicare [id number] Unknown [id number] Social History Date Type Detail Facility Start: 12-11-2021 Tobacco smoking status Never s moked tobacco (finding) [facility] [employer] Other Tobacco smoking status Never [facility] Sex Assigned At Male [employer] [facility] [employer] Other Start: 09-17-2023 End: 09-17-2023 Tobacco smoking status NHIS Ex-smoker (finding) [facility] Start: 1955 Sex Assigned At Male [facility] Start: 06-28-2024 End: 10-10-2024 Sex Male (finding) [facility] Evaluation note 01-21-2022 Note Date & Type Note Facility 01-21-2022 Evaluation note Encounter Date Diagnosis Assessment Notes Jan, Travel advice encounter (ICD-10 - Z71.84) [employer] Other Hospital Discharge instructions 12-11-2021 Note Date [...] 04/21/2005 Document Revised: 11/10/2018 Document Reviewed: 11/10/2018 [employer] Patient Education 2020 bulletn.. Follow Up Care 12/08/2021 14:58:10 With:Yasemin Miller CNP Address: When:1 year only if needed [facility] Evaluation note 06-04-2021 [...] Patient care instructions given in writting by [facility] Care At Home document. [employer] Other Evaluation + Plan note Note Date & Type Note Facility Evaluation + Plan note No data available for this section [facility] Evaluation note Note Date & Type Note Facility Evaluation note Diagnosis Onset Date Chronic venous insufficiency acute IFG (impaired fasting glucose) acute Primary hypertension acute Pure hypercholesterolemia, unspecified acute Screening PSA (prostate specific antigen) noneactive [facility] Work Phone: Evaluation note Note Date & Type Note Facility Evaluation note Diagnosis Onset Date Chronic venous insufficiency acute IFG (impaired fasting glucose) acute Primary hypertension acute Pure hypercholesterolemia, unspecified acute Medicare annual wellness visit, initial noneactive Screening PSA (prostate specific antigen) noneactive Chronic venous insufficiency acute Primary hypertension acute [facility] Work Phone: Evaluation note Note Date & Type Note Facility Evaluation note Diagnosis Onset Date Resolution Adenomatous polyp of descending colon acute June 28, 2024 9:52am Chronic venous insufficiency acute June 28, 2024 9:52am Hypercholesterolemia acute 2023 9:52am IFG (impaired fasting glucose) acute June 28, 2024 9:52am Obesity acute June 28, 2024 9:52am Primary hypertension acute 2023 9:52am [facility] Work Phone: Evaluation note Note Date & [...] (prostate specific antigen) acute October 10 9:53am [facility] Work Phone: History general Narrative - Reported Note Date & Type Note Facility History general Narrative - Reported Type Surgical History vasectomy Surgical History tonsillectomy Hospitalization History see above [employer] Other Summary Purpose Family History No Family History Records Found Relationship Condition Age at Onset Recorded Date/T dewayne father Unknown Malignant neoplasm Unknown Not Specified Unknown Heart disease Unknown Myocardial infarction Unknown Relationship Condition Age at Onset Recorded Date/T deawyne father Unknown Malignant neoplasm Unknown mother Unknown [...] Date Adenomatous polyp of descending colon [facility] 2024 9:53am Chronic venous insufficiency October 10, [...] DATE CREATED AUTHOR 'S ORGANIZ ATION 10/25/2024 [facility] Care Teams (unrecognized sec tion and content) [...] BE BASED ON THE PRIMARY CLINICAL RECORDS. [facility] Contact At Once! [facility]. provides no warranty or guarantee of the accuracy or completeness of information in this document.
[2024-11-08] MEDS: LACTATED RINGER'S SOLUTION 1,000 ML 50 ML IV ×2 (08:32→10:46)
[2024-11-08] MEDS: CEFAZOLIN SODIUM/DEXTROSE,ISO 2 GM/50 ML PIGGYBACK IV (10:04)
--- NOTE | 2024-11-08 10:18 | PC.NURSE ---
Patient was consented for TAP block by Dr. Jha. Patient placed on O2 and monitors per protocol. Time-out performed at 0947 per protocol. Patient positioned on back. Patient medicated per Dr. Jha. Bedside ultrasound used to locate sites by Dr. Jha. Patients right side completed from 0953 to 0954 and left side completed from 0855 to 0856. Patient remained on monitors until taken to the OR. Patient tolerated procedure well.
[2024-11-08] MEDS: BUPIVACAINE HCL 0.25% PF 25 MG/10 ML VIAL INJ (10:39)
[2024-11-08] MEDS: BUPIVACAINE LIPOSOME/PF 266 MG/20 ML VIAL 13.3 MG INJ (10:40)
[2024-11-08] MEDS: 0.9 % SODIUM CHLORIDE 10 ML INJ ×2 (10:40→10:42)
--- NOTE | 2024-11-08 12:17 | PC.NURSE ---
Instructed on use of PEP therapy and demonstrates correctly
--- NOTE | 2024-11-08 12:52 | PC.NURSE ---
Up to bathroom and voids without difficulty
== END 2024-11-08 12:53 | disposition home or self-care (01) ==
PROVIDERS: PCP Internal Medicine; Visit Provider Surgery
PROC: (CPT 49592; principal; 2024-11-08 09:00)
DX: K42.0 Umbilical hernia with obstruction, without gangrene (principal); I10 Essential (primary) hypertension; E78.5 Hyperlipidemia, unspecified; N40.0 Benign prostatic hyperplasia without lower urinary tract symptoms
CPT/HCPCS: 49592; 64488; 88302; 94667; J0131; J0665; J0690; J1100; J1885; J2250; J2371; J2405; J2704; J3010

== ENCOUNTER 2025-04-02 09:19 | Outpatient (OUT) | payer MEDICARE, OTHER, SELFPAY ==
--- NOTE | 2025-04-02 | XR_ITS ---
[facility] [place] [id number] Patient Name: CYNTHIA CORTEZ MRN: [id number] date: 1955 Sex: M Assigned Patient Location: [facility] Current Patient Location: [facility] Accession/Order Number: [id number] Exam Date: 04/02/2025 09:35 Report Date: 04/02/2025 09:58 At the request of: PHOEBE FLYNN DO Procedure: XR knee LT 4V LEFT KNEE - 4 views CLINICAL DATA: Chronic left knee pain, worsening over the past month and greatest with stairs. No specific injury. COMPARISON: None AP, lateral, internal oblique and patellar views were obtained. There is osteopenia. There is no acute fracture or dislocation. There is slight lateral subluxation of the patella. There is moderate narrowing at the medial tibiofemoral joint compartment. There is lucency at the articular aspect of the medial femoral condyle. Osteochondritis dissecans is not excluded. Tricompartment marginal spurring is seen, greatest at the patellofemoral joint.. There is a trace amount joint fluid. XR/XR knee LT 4V IMPRESSION: DEGENERATIVE CHANGES. POSSIBLE OSTEOCHONDRITIS DESICCATION AT THE MEDIAL FEMORAL CONDYLE. NO OTHER ACUTE FINDINGS. Impression dictated by: Kimberly Mackenzie M.D. 04/02/2025 9:58 AM Dictation Location: [employer] Electronically authenticated by: [id number] Y Date: 04/02/2025 09:58
--- OUTSIDE RECORDS SUMMARY | 2025-04-02 09:29 | XMS_ITS | CCD ---
Author Organization [facility] Care Team Providers Care [employer] Manager Name Role Phone TORIE FINNEY Primary Care Physician [phone] TORIE FINNEY Primary Care Unavailable REQUEST, NONE LISTED Attending Unavaila ble REQUEST, NONE LISTED Consulting Unavaila ble REQUEST, NONE LISTED Admitting Unavaila ble Nill , Ascencion Bullock Attending Provider [phone] [place], Ascencion Bullock Attending Unavailable Nill, Ascencion Bullock Admitting Unavailable NILL, Ascencion Bullock Attending Unavailable NILL, Ascencion Bullock Attending Unavailable TORIE FINNEY Referring Unavailable NILL, Ascencion Bullock Attending Unavailable NILL, Ascencion Bullock Attending Unavailable TORIE FINNEY Referring Unavailable NILL, Ascencion Bullock Attending Unavailable Allergies Allergy Classification Reported Allergen(s) Allergy Type Date of Onset Reaction(s) Facility (1 source) No Known Medication Allergies; Translations: [No Known Medication Allergies] Propensity to adverse reactions (disorder) [facility] Repository Medications Current Medications Medication Drug Class(es) Dates Sig (Normalized) Sig (Original) Psyllium (1 source) Start: 10-06-2021 take 1 capsule by mouth twice daily Metamucil 1 cap, Oral, BID, Ordered by another provider., Refills(s) 0, Constipation Start Date: 10/06/21 Status: Ordered telmisartan 20 mg oral tablet (3 sources) Angiotensin 2 Receptor Hawa Start: 06-28-2024 take 1 tablet by mouth once daily Telmisartan 20 mg tablet Active 20 MG PO Daily June 28, 2024 1:00am Problems Active Problems Problem Classification Problem Date Documented Date Episodic/Chronic Abdominal hernia (2 sources) Umbilical hernia; Translations: [Umbilical hernia without obstruction or gangrene] 10-10-2024 Episodic Diabetes mellitus without complication (10 sources) Impaired fasting glycemia; Translations: [Impaired fasting glucose] 09-17-2023 Episodic Disorders of lipid metabolism (9 sources) Pure hypercholesterolemia ; Translations: [Pure hypercholesterolemia , unspecified] 09-21-2023 Chronic Diverticulosis and diverticulitis (2 sources) Diverticula of intestine; Translations: [Diverticulosis of intestine, part unspecified, without perforation or abscess without bleeding] Onset: 12-11-2021 Chronic Essential hypertension (11 sources) Essential hypertension; Translations: [Essential (primary) hypertension] 09-17-2023 Chronic Hemorrhoids (2 sources) Hemorrhoids; Translations: [Unspecified hemorrhoids] Onset: 12-11-2021 Episodic Hyperplasia of prostate (10 sources) Large prostate ; Translations: [Benign prostatic hyperplasia without lower urinary tract symptoms] 09-17-2023 Chronic Other and unspecified benign neoplasm (2 sources) Polyp of colon; Translations: [Polyp of colon] Onset: 12-11-2021 Episodic Other and unspecified benign neoplasm (1 source) History of polyp of colon 10-06-2021 Episodic Other and unspecified benign neoplasm (5 sources) Adenomatous polyp of colon ; Translations: [Benign neoplasm of descending colon] 09-17-2023 Episodic Other and unspecified benign neoplasm (3 sources) Benign neoplasm of descending colon; Translations: [Benign neoplasm of colon] 06-28-2024 Episodic Other diseases of veins and lymphatics (10 sources) Peripheral venous insufficiency; Translations: [Venous insufficiency (chronic) (peripheral)] 09-17-2023 Episodic Other diseases of veins and lymphatics (6 sources) Venous insufficiency (chronic) (peripheral); Translations: [Venous (peripheral) insufficiency, unspecified] 09-21-2023 Episodic Other nutritional; endocrine; and metabolic disorders (2 sources) Morbid obesity; Translations: [Morbid (severe) obesity due to excess calories] 09-17-2023 Chronic Other nutritional; endocrine; and metabolic disorders (3 sources) Obesity; Translations: [Obesity, unspecified] 06-28-2024 Chronic Other nutritional; endocrine; and metabolic disorders (3 sources) Obesity, unspecified; Translations: [Obesity, unspecified] 06-28-2024 Chronic Other screening for suspected conditions (not mental disorders or infectious disease) (6 sources) Encounter for screening for malignant neoplasm of prostate; Translations: [Screening for malignant neoplasms of prostate] 09-21-2023 Episodic Comment on above: PSA: 2.32 - 09/2023, 2.91 - 10/2024 Residual codes; unclassified (1 source) Family history of malignant neoplasm of digestive organ; Translations: [Family history of malignant neoplasm of digestive organs] Onset: 12-11-2021 Episodic Residual codes; unclassified (1 source) Family history of cancer of colon 10-06-2021 Episodic Substance-related disorders (5 sources) Tobacco dependence in remission; Translations: [Nicotine [...] Range Facility General Surgery Office/Clini c Noteon 11-29-2024 General Surgery Office/Clinic Note General Surgery Office/Clinic Note Chief Complaint post operative follow up HPI Staff 21 day post operative follow up post primary umbilical hernia repair. Denies discomfort, no use of pain medication. Denies bleeding or drainage. Reports some redness at site of suture knot. Wearing abdominal binder as instructed. Bowels moving well. History of Present Illness 3 weeks s/p primary umbilical herniorrhaphy; doing well, denies pain, some irritation of left lateral incision from suture knot; no drainage; wearing binder, no strenuous activity. Review of Systems PHQ Score Initial Depression Screen Score: 0 SCORE ROS - Provider Constitutional: no fever, no sweats, no weight loss. Eyes: no glasses, no blurred vision, no visual loss. [...] and are negative or noncontributory. Physical Exam abd: obese, soft, nontender, nondistended, incision healing well; incision with small scab, suture knot on left lateral edge; minimal erythema, no drainage or open areas, no seroma. Assessment/Plan 1. Reducible umbilical hernia (K42.9: Umbilical hernia without obstruction or gangrene) doing well; suture knot removed; clean umbilicus with rubbing alcohol daily after showering; continue no lifting > 10 lbs for 1 more week, then gradually resume regular activities; wear binder as needed for comfort; call with problems/questions. Follow-up With When Contact Information PASTORA KIDD, DONTE Morrison Only if needed [address] [place] [address]- Additional Instructions: Problem List/Past Medical History Ongoing BMI 40.0-44.9, adult BPH (benign prostatic hyperplasia) Class 3 obesity Diverticulosis Essential hypertension Family history of colon cancer in father Hemorrhoids History of colon polyps Peripheral venous insufficiency Pure hypercholesterolemia Reducible umbilical hernia Historical No qualifying data Procedure/Surgical History Primary repair of umbilical hernia (11/08/2024), Colonoscopy (11/13/2021), Colonoscopy (09/30/2018), Tonsillectomy, Vasectomy. Medications telmisartan 20 mg oral tablet, 20 mg= 1 tab(s), Oral, Daily Allergies No Known Allergies No Known Medication Allergies Social History Alcohol Current. Beer, Liquor. 1-2 times per week., 10/19/2024 Substance Abuse Never., 10/19/2024 Tobacco Never (less than 100 in lifetime) Tobacco Use:. Never Smokeless Tobacco Use:., 11/29/2024 Family History CA - Pancreatic cancer: Sister. Colon cancer: Father. Immunizations Vaccine Date Status SARSCoV2 mRNA(lhwuiyghp-begh-tubm os) vac 09/18/2021 Recorded SARS-CoV-2 (COVID-19) mRNA BNT-162b2 vax 08/28/2021 Recorded Normal [facility] Comment on above: Result Comment: Elec tronically Signed By: Ascencion GUILLORY MD\.br\Date and Time Signed: 11/29/24 14:47 EDT Ambulatory Visit Summaryon 0 11-15-2024 Ambulatory Visit Summary Ambulatory Visit Summary PEPITO COLEMAN :1955 Visit Date:11/15/2024 Ambulatory Visit Instructions Your Care Team Attending Physician - Ascencion GUILLORY MD Primary Care Physician - TORIE FINNEY DO This Is Your Medications List telmisartan (telmisartan 20 mg oral tablet) Procedures Performed Primary repair of umbilical hernia (11/08/2024), Colonoscopy (11/13/2021), Colonoscopy (09/30/2018), Tonsillectomy, Vasectomy. What to do next Scheduled Follow-Up Appointments Wednesday 2:40 PM EDT With: Ascencion GUILLORY MD Where: [facility] [address], [address], [place] [id number]- Medications What How Much When Instructions Unchanged telmisartan (telmisartan 20 mg oral tablet) 1 Tablets By Mouth Every day Allergies No Known Allergies No Known Medication Allergies Problems Ongoing - Any problem that you are currently receiving treatment for. BMI 40.0-44.9, adult BPH (benign prostatic hyperplasia) Class 3 obesity Diverticulosis Essential hypertension Family history of colon cancer in father Hemorrhoids History of colon polyps Peripheral venous insufficiency Pure hypercholesterolemia Reducible umbilical hernia Patient Survey You may receive a survey via text or e-mail asking about your office visit. Please share your experience with us by completing your survey. We appreciate your feedback and thank you for choosing us for your care. Shaq Goel [facility] General Surgery Office/Clini c Noteon 11-15-2024 General Surgery Office/Clinic Note General Surgery Office/Clinic Note Chief Complaint post operative follow up HPI Staff 7 day post operative follow up post primary umbilical hernia repair. Reports minimal intermittent discomfort, scant use of Ibuprofen. Denies bleeding or drainage. Bowels moving well. Wearing abdominal binder as instructed. History of Present Illness 1 week s/p primary umbilical herniorrhaphy; denies pain, mild soreness controlled with ibuprofen; did not take any of the narcotics; normal bms, no drainage from incision; wearing binder. Review of Systems PHQ Score Initial Depression Screen Score: 0 SCORE ROS - Provider Constitutional: no fever, no sweats, no weight loss. Eyes: no glasses, no blurred vision, no visual loss. [...] and are negative or noncontributory. Physical Exam abd: obese, soft, nondistended; incision with minimal induration, mild resolving ecchymosis; no drainage. Assessment/Plan 1. Reducible umbilical hernia (K42.9: Umbilical hernia without obstruction or gangrene) doing well, continue to wear abd binder, no lifting > 10 lbs for 3 weeks; f/u in 2 weeks, call sooner if problems/questions. Follow-up No qualifying data available Problem List/Past Medical History Ongoing BMI 40.0-44.9, adult BPH (benign prostatic hyperplasia) Class 3 obesity Diverticulosis Essential hypertension Family history of colon cancer in father Hemorrhoids History of colon polyps Peripheral venous insufficiency Pure hypercholesterolemia Reducible umbilical hernia Historical No qualifying data Procedure/Surgical History Primary repair of umbilical hernia (11/08/2024), Colonoscopy (11/13/2021), Colonoscopy (09/30/2018), Tonsillectomy, Vasectomy. Medications telmisartan 20 mg oral tablet, 20 mg= 1 tab(s), Oral, Daily Allergies No Known Allergies No Known Medication Allergies Social History Alcohol Current. Beer, Liquor. 1-2 times per week., 10/19/2024 Substance Abuse Never., 10/19/2024 Tobacco Never (less than 100 in lifetime) Tobacco Use:. Never Smokeless Tobacco Use:., 11/15/2024 Family History CA - Pancreatic cancer: Sister. Colon cancer: Father. Immunizations Vaccine Date Status SARSCoV2 mRNA(jqqhptprh-ifle-ajqv os) vac 09/18/2021 Recorded SARS-CoV-2 (COVID-19) mRNA BNT-162b2 vax 08/28/2021 Recorded Normal [facility] Comment on above: Result Comment: Elec tronically Signed By: PASTORA KIDD, Ascencion Nobles\Date and Time Signed: 11/15/24 15:43 EDT Jesus 11-08-2024 L ---- Specimen: [id number] Received: 11/08/24 Status: ANAI Mckoy Num: [id number] Spec Type: Surgical Subm Dr: Ascencion Guillory MD FACS Tissues: A Hernia Sac (UMBILICAL HERNIA SAC) Procedures: HE, Gross/Micro L2 Age/ Patient Sex Location Account Attending Physician Pepito Coleman 68/M LABELL [id number] Ascencion Guillory MD FACS SPEC NUM: [id number] RECD: 11/08/24 STATUS: ANAI MCKOY NUM: [id number] ELVA: 11/08/24-[address] [facility] [address]: Ascencion Guillory MD FACS ENTERED: 11/08/[address] [facility] [address]: Phillip Pulido SPEC TYPE: Surgical DEPT: DARY KENT ENTERED BY: [id number] RECV BY: [id number] ORDERED: HE, Gross/Micro L2 ORDERED: HE, Gross/Micro L2 Pathological Diagnosis Hernia sac, umbilical, repair: Features consistent with hernia sac. Clinical Information Umbilical hernia repair Gross Description Part A is received in formalin labeled with the patients name, date of , and umbilical hernia sac are 2 ovoid sheets of lujan-pink fibromembranous tissue, 5 x 1 x 0.3 cm, and 11 x 2.5 x 0.3 cm. The specimens are smooth and glistening on 1 surface, while the opposing surface is focally adhesed. The larger specimen displays adherent adipose tissue, up to 0.5 cm in thickness on the adhesed surface. Serial sections reveal tse-pink to yellow-lujan, glistening, and uniform cut surfaces. P[employer] D[employer] sections are submitted in a single cassette. (1, , [id number] A) CPT Codes 68400 Specimen: [id number] Received: 11/08/24 Status: ANAI Leelee Num: [id number] Spec Type: Surgical Subm Dr: Ascencion Guillory MD FACS Tissues: A Hernia Sac (UMBILICAL HERNIA SAC) Procedures: Thania THOMPSON/Isaias L2 Patient: Pepito Coleman [id number] (Continued) Signed (signature on file) Marques Villanueva MD 11/09/24 [address] [facility] General Surgery Office/Clini c Noteon 10-24-2024 General Surgery Office/Clinic Note General Surgery Office/Clinic Note HPI Staff 68 year old male presents on consultation from Dr. Finney for umbilical hernia. Reports noting bulge approximately [...] cancer: Father. Immunizations Vaccine Date Status SARSCoV2 mRNA(vsjpdyogv-iypv-ffgd os) vac 09/18/2021 Recorded SARS-CoV-2 (COVID-19) mRNA BNT-162b2 vax 08/28/2021 Recorded Normal [facility] Comment on above: Result Comment: Elec tronically Signed By: PASTORA KIDD, Ascencion Nobles\Date and Time Signed: 10/24/24 14:22 EDT No Panel Informationon 10-10 Prostate Specific Antigen Screen 2.91 ng/mL <=4.00 [facility] Basophils Auto (Bld) [#/Vol] on 09-21-2023 Basophils (Bld) [#/Vol] 0.0 10 3/uL 0.0-0.1 [facility] Basophils/100 WBC Auto (Bld) on 09-21-2023 Basophils/100 WBC (Bld) 0.5 % 0.2-2.0 [facility] Cholesterol in LDL Calc [Mas s/Vol]on 09-21-2023 Cholesterol in LDL [Mass/Vol] 120.2 mg/dL [facility] Comment on above: <100 mg/dl [id number] 0-129 mg/dl NEAR OR ABOVE [id number] mg/dl BORDERLINE [id number] mg/dl HIGH>190 mg/dl VERY HIGH Cholesterol in VLDL Calc [Ma ss/Vol]on 09-21-2023 Cholesterol in VLDL [Mass/Vol] 11.8 mg/dL [facility] Eosinophils/100 WBC Auto (Bl d)on 09-21-2023 Eosinophils/100 WBC (Bld) 2.2 % 0.9-7.0 [facility] Erythrocyte distribution wid th Auto (RBC) [Ratio]on 09-21-2023 Erythrocyte distribution width (RBC) [Ratio] 13.6 % 11.0-15.0 [facility] Estimated glomerular filtrat ion rate (GFR) non- Americanon 09-21-2023 GFR/1.73 sq M.predicted among non-blacks MDRD (S/P/Bld) [Vol rate/Area] mL/min/{1.73_m2} >=60 [facility] Globulin Calc (S) [Mass/Vol] on 09-21-2023 Globulin (S) [Mass/Vol] 4.0 g/dL [facility] Glucose mean value [Mass/vol ume] in Blood Estimated from glycated hemoglobinon 09-21-2023 Average glucose Estimated from glycated hemoglobin (Bld) [Mass/Vol] 111 mg/dL [facility] Hematocrit Auto (Bld) [Volum e fraction]on 09-21-2023 Hematocrit (Bld) [Volume fraction] 44.3 % 42.0-54.0 [facility] Hemoglobin [Mass/volume] in Bloodon 09-21-2023 Hemoglobin (Bld) [Mass/Vol] 14.9 g/dL 14.0-18.0 [facility] Laboratory - Chemistry and C hemistry - challengeon 09-21-2023 Albumin [Mass/Vol] 3.7 g/dL 3.4-5.0 [facility] ALP [Catalytic activity/Vol] 51 U/L 46-116 [facility] ALT [Catalytic activity/Vol] 81 U/L 16-63 [facility] AST [Catalytic activity/Vol] 46 U/L 15-37 [facility] Bilirubin [Mass/Vol] 0.9 mg/dL 0.2-1.0 [facility] Calcium [Mass/Vol] 9.0 mg/dL 8.5-10.1 [facility] Chloride [Moles/Vol] 107 mmol/L 98-107 [facility] Cholesterol [Mass/Vol] 183 mg/dL <=200 [facility] Cholesterol in HDL [Mass/Vol] 51 mg/dL 40-60 [facility] Comment on above: > or =60 mg/dl - LOW CARDIOVASCULAR RISK<40 mg/dl - HIGH CARDIOVASCULAR RISK CO2 [Moles/Vol] 27.2 mmol/L 21.0-32.0 [facility] Creatinine [Mass/Vol] 0.93 mg/dL 0.70-1.30 [facility] GFR/1.73 sq M.predicted MDRD (S/P/Bld) [Vol rate/Area] mL/min/{1.73_m2} >=60 [facility] Glucose [Mass/Vol] 92 mg/dL 74-106 [facility] Potassium [Moles/Vol] 4.4 mmol/L 3.5-5.1 [facility] Protein [Mass/Vol] 7.7 g/dL 6.4-8.2 [facility] Sodium [Moles/Vol] 143 mmol/L 136-145 [facility] Triglyceride [Mass/Vol] 59 mg/dL <=150 [facility] Urea nitrogen [Mass/Vol] 17.0 mg/dL 7.0-18.0 [facility] Urea nitrogen/Creatinine [Mass ratio] 18.3 mg/mg [facility] Laboratory - Hematology and Cell countson 09-21-2023 HbA1c (Bld) [Mass fraction] 5.5 % 4.5-6.2 [facility] Comment on above: ADA RECOMMENDED LIMI T 4.0 - 6.0ADA THERAPEUTIC TARGET < 7.0ACTION SUGGESTED> 7.0 Immature granulocytes/100 WBC (Bld) 0.4 % 0.0-0.5 [facility] Leukocytes [#/volume] correc pedro for nucleated erythrocytes in Blood by Automated counon 09-21-2023 WBC corrected for nucl RBC Auto (Bld) [#/Vol] 7.4 10 3/uL 4.0-11.0 [facility] Lymphocytes Auto (Bld) [#/Vo l]on 09-21-2023 Lymphocytes (Bld) [#/Vol] 2.2 10 3/uL 1.2-3.8 [facility] Lymphocytes/100 WBC Auto (Bl d)on 09-21-2023 Lymphocytes/100 WBC (Bld) 29.9 % 20.5-60.0 [facility] MCH Auto (RBC) [Entitic mass ]on 09-21-2023 MCH (RBC) [Entitic mass] 32.2 pg 25.9-34.0 [facility] MCHC Auto (RBC) [Mass/Vol]on 09-21-2023 MCHC (RBC) [Mass/Vol] 33.6 g/dL 29.9-35.2 [facility] MCV Auto (RBC) [Entitic vol] on 09-21-2023 MCV (RBC) [Entitic vol] 95.7 fL 80.0-94.0 [facility] Monocytes Auto (Bld) [#/Vol] on 09-21-2023 Monocytes (Bld) [#/Vol] 0.8 10 3/uL 0.3-0.8 [facility] Monocytes/100 WBC Auto (Bld) on 09-21-2023 Monocytes/100 WBC (Bld) 11.2 % 1.7-12.0 [facility] Neutrophils Auto (Bld) [#/Vo l]on 09-21-2023 Neutrophils (Bld) [#/Vol] 4.2 10 3/uL 1.4-6.5 [facility] Neutrophils/100 WBC Auto (Bl d)on 09-21-2023 Neutrophils/100 WBC (Bld) 55.8 % 43.0-75.0 [facility] No Panel Informationon 09-21 Eosinophils # (Auto) 0.2 10 3/uL 0.0-0.7 [facility] Immature Granulocyte # (Auto) 0.03 10 3/uL 0.00-0.03 [facility] Nucleated Red Blood Cells/100 WBC 0 [facility] Prostate Specific Antigen Screen 2.32 ng/mL <=4.00 [facility] Platelet mean volume Auto (B ld) [Entitic vol]on 09-21-2023 Platelet mean volume (Bld) [Entitic vol] 9.5 fL 9.5-13.5 [facility] Platelets Auto (Bld) [#/Vol] on 09-21-2023 Platelets (Bld) [#/Vol] 186 10 3/uL 150-450 [facility] RBC Auto (Bld) [#/Vol]on RBC (Bld) [#/Vol] 4.63 10 6/uL 4.70-6.10 [facility] Serum or plasma albumin/glob ulin mass ratioon 09-21-2023 Albumin/Globulin [Mass ratio] 0.9 {ratio} [facility] Serum or plasma anion gap de terminationon 09-21-2023 Anion gap [Moles/Vol] 13.2 mmol/L [facility] Serum or plasma total choles terol/high density lipoprotein (HDL) cholesterol mass consuelo 09-21-2023 Cholesterol.total/C holesterol in HDL [Mass ratio] 3.6 {ratio} [facility] Comment on above: 3.3 - 4.4 LOW RISK4. 4 - 7.1 AVERAGE RISK7.1 - 11.0 MODERATE RISK>11.0 HIGH RISK CBC AUTO DIFFon 09-23-2022 BASO # 0.0 103/ul Normal 0.0-0.1 [facility] Comment on above: Performed By: #### D ATCBC #### [facility] [address] [place] [address] [address] Rhea Alexandre Basophils/100 WBC (Bld) 0.5 % Normal 0.2-2.0 [facility] Comment on above: Performed By: #### D ATCBC #### [facility] [address] [place] [address] [address] Rhea Alexandre EO # 0.1 103/ul Normal 0.0-0.7 [facility] Comment on above: Performed By: #### D ATCBC #### [facility] [address] [place] [address] [address] Rhea Alexandre Eosinophils/100 WBC (Bld) 2.0 % Normal 0.9-7.0 [facility] Comment on above: Performed By: #### D ATCBC #### [facility] [address] [place] [address] [address] Rhea Alexandre Erythrocyte distribution width (RBC) [Ratio] 13.3 % Normal 11.0-15.0 [facility] Comment on above: Performed By: #### D ATCBC #### [facility] [address] [place] [address] [address] Rhea Alexandre Hematocrit (Bld) [Volume fraction] 44.8 % Normal 42.0-54.0 [facility] Comment on above: Performed By: #### D ATCBC #### [facility] [address] [place] [address] Dr. Rhea Alexandre Hemoglobin (Bld) [Mass/Vol] 15.4 g/dL Normal 14.0-18.0 [facility] Comment on above: Performed By: #### D ATCBC #### [facility] [address] [place] [address] [address] Rhea Alexandre IG # 0.01 10e3/ul Normal 0.00-0.03 [facility] Comment on above: Performed By: #### D ATCBC #### [facility] [address] [place] [address] [address] Rhea Alexandre IG % 0.2 % Normal 0.0-0.5 [facility] Comment on above: Performed By: #### D ATCBC #### [facility] [address] [place] [address] [address] Rhea Alexandre LYMPH # 2.4 103/ul Normal 1.2-3.8 [facility] Comment on above: Performed By: #### D ATCBC #### [facility] [address] [place] [address] Dr. Rhea Alexandre Lymphocytes/100 WBC (Bld) 36.6 % Normal 20.5-60.0 [facility] Comment on above: Performed By: #### D ATCBC #### [facility] [address] [place] [address] [address] Rhea Alexandre MCH (RBC) [Entitic mass] 32.0 pg Normal 25.9-34.0 [facility] Comment on above: Performed By: #### D ATCBC #### [facility] [address] [place] [address] [address] Rhea Alexandre MCHC (RBC) [Mass/Vol] 34.4 g/dL Normal 29.9-35.2 [facility] Comment on above: Performed By: #### D ATCBC #### [facility] [address] [place] [address] [address] Rhea Alexandre MCV (RBC) [Entitic vol] 92.9 fL Normal 80.0-94.0 [facility] Comment on above: Performed By: #### D ATCBC #### [facility] [address] [place] [address] [address] Rhea Alexandre MONO # 0.8 103/ul Normal 0.3-0.8 [facility] Comment on above: Performed By: #### D ATCBC #### [facility] [address] [place] [address] Dr. Rhea Alexandre Monocytes/100 WBC (Bld) 11.9 % Normal 1.7-12.0 [facility] Comment on above: Performed By: #### D ATCBC #### [facility] [address] [place] [address] Dr. Rhea Alexandre NEUT # 3.2 103/ul Normal 1.4-6.5 [facility] Comment on above: Performed By: #### D ATCBC #### [facility] [address] [place] [address] Dr. Rhea Alexandre Neutrophils/100 WBC (Bld) 48.8 % Normal 43.0-75.0 [facility] Comment on above: Performed By: #### D ATCBC #### [facility] [address] [place] [address] Dr. Rhea Alexandre Platelet mean volume (Bld) [Entitic vol] 9.6 fL Normal 9.5-13.5 [facility] Comment on above: Performed By: #### D ATCBC #### [facility] [address] [place] [address] Dr. Rhea Alexandre PLT 193 103/ul Normal 150-450 [facility] Comment on above: Performed By: #### D ATCBC #### [facility] [address] [place] [address] Dr. Rhea Alexandre RBC 4.82 106/ul Normal 4.70-6.10 [facility] Comment on above: Performed By: #### D ATCBC #### [facility] [address] [place] [address] Dr. Rhea Alexandre WBC 6.5 103/ul Normal 4.0-11.0 [facility] Comment on above: Performed By: #### D ATCBC #### [facility] [address] [place] [address] Dr. Rhea Alexandre RAHUL- BMP WITH LIPIDon 2022 Anion gap [Moles/Vol] 10.9 mmol/L Normal [facility] Comment on above: Performed By: #### D ATBMP, DATPSA #### [facility] [address] [address] [address] Rhea Alexandre Calcium [Mass/Vol] 9.1 mg/dL Normal 8.5-10.1 [facility] Comment on above: Performed By: #### D ATBMP, DATPSA #### [facility] [address] [place] [address] Dr. Rhea Alexandre Chloride [Moles/Vol] 104 mmol/L Normal 98-107 [facility] Comment on above: Performed By: #### D ATBMP, DATPSA #### [facility] [address] [place] [address] Dr. Rhea Alexandre Cholesterol [Mass/Vol] 155 mg/dL Normal <=200 [facility] Comment on above: Performed By: #### D ATBMP, DATPSA #### [facility] [address] [place] [address] Dr. Rhea Alexandre Cholesterol in HDL [Mass/Vol] 50 mg/dL Normal 40-60 [facility] Comment on above: Performed By: #### D ATBMP, DATPSA #### [facility] [address] [place] [address] Dr. Rhea Alexandre Cholesterol in LDL [Mass/Vol] 93.4 mg/dL Normal [facility] Comment on above: Performed By: #### D ATBMP, DATPSA #### [facility] [address] [place] [address] Dr. Rhea Alexandre CO2 [Moles/Vol] 29.5 mmol/L Normal 21.0-32.0 [facility] Comment on above: Performed By: #### D ATBMP, DATPSA #### [facility] [address] [place] [address] Dr. Rhea Alexandre Creatinine [Mass/Vol] 0.89 mg/dL Normal 0.70-1.30 [facility] Comment on above: Performed By: #### D ATBMP, DATPSA #### [facility] [address] [address] [address] Rhea Alexandre EGFR-AF KENYAN >60 Normal >=60 [facility] Comment on above: Performed By: #### D ATBMP, DATPSA #### [facility] [address] [address] [address] Rhea Alexandre EGFR-NON AF KENYAN >60 Normal >=60 [facility] Comment on above: Performed By: #### D ATBMP, DATPSA #### [facility] [address] [address] [address] Rhea Alexandre Glucose [Mass/Vol] 102 mg/dL Normal 74-106 [facility] Comment on above: Performed By: #### D ATBMP, DATPSA #### [facility] [address] [place] [address] Dr. Rhea Alexandre HDL NORMAL > or = 60 mg/dl - LO W CARDIOVASCULAR RISK <40 mg/dl - HIGH CARDIOVASCULAR RISK Normal [facility] Comment on above: Performed By: #### D ATBMP, DATPSA #### [facility] [address] [place] [address] Dr. Rhea Alexandre LDL CALC NORMAL SEE BELOW Normal [facility] Comment on above: Result Comment: <100 mg/dl OPTIMAL 100 - 129 mg/dl NEAR OR ABOVE OPTIMAL 130 - 159 mg/dl BORDERLINE HIGH 160 - 189 mg/dl HIGH >190 mg/dl VERY HIGH Performed By: #### D ATBMP, DATPSA #### [facility] [address] [address] [address] Rhea Alexandre Potassium [Moles/Vol] 4.4 mmol/L Normal 3.5-5.1 [facility] Comment on above: Performed By: #### D ATBMP, DATPSA #### [facility] [address] [address] [address] Rhea Alexandre Sodium [Moles/Vol] 140 mmol/L Normal 136-145 [facility] Comment on above: Performed By: #### D ATBMP, DATPSA #### [facility] [address] [address] [address] Rhea Alexandre Triglyceride [Mass/Vol] 58 mg/dL Normal <=150 [facility] Comment on above: Performed By: #### D ATBMP, DATPSA #### [facility] [address] [address] [address] Rhea Alexandre Urea nitrogen [Mass/Vol] 18.0 mg/dL Normal 7.0-18.0 [facility] Comment on above: Performed By: #### D ATBMP, DATPSA #### [facility] [address] [address] [address] Rhea Alexandre Urea nitrogen/Creatinine [Mass ratio] 20.2 mg/mg Normal [facility] Comment on above: Performed By: #### D ATBMP, DATPSA #### [facility] [address] [address] [address] Rhea Alexandre VLDL CALC 11.6 mg/dL Normal [facility] Comment on above: Performed By: #### D ATBMP, DATPSA #### [facility] [address] [address] [address] Rhea Alexandre COVID Quick Testingon 2021 Result Negative [employer] Other COVID Quick Testingon 2020 Result Negative [facility] [employer] Other Vital Signs Date Time Vital Sign Value Performing Clinician Facility 10-10-2024 10:05-0500 Body height 175.26 cm [facility] 10-10-2024 10:05-0500 Body mass index (BMI) [Ratio] 40.8 kg/m2 [facility] 10-10-2024 10:05-0500 Body temperature 98.1 [degF] [facility] 10-10-2024 10:05-0500 Body weight 125.64 kg [facility] 10-10-2024 10:05-0500 Diastolic blood pressure 72 mm[Hg] [facility] 10-10-2024 10:05-0500 Heart rate 84 /min [facility] 10-10-2024 10:05-0500 SaO2% (BldA) [Mass fraction] 97 % [facility] 10-10-2024 10:05-0500 Systolic blood pressure 128 mm[Hg] [facility] 06-28-2024 10:10-0500 Body height 175.26 cm [facility] 06-28-2024 10:10-0500 Body mass index (BMI) [Ratio] 40.8 kg/m2 [facility] 06-28-2024 10:10-0500 Body weight 125.64 kg [facility] 06-28-2024 10:10-0500 Diastolic blood pressure 80 mm[Hg] [facility] 06-28-2024 10:10-0500 Heart rate 71 /min [facility] 06-28-2024 10:10-0500 Respiratory rate 12 /min [facility] 06-28-2024 10:10-0500 Systolic blood pressure 160 mm[Hg] [facility] 12-20-2023 08:57-0400 Body height 175.26 cm [facility] 12-20-2023 08:57-0400 Body mass index (BMI) [Ratio] 40.4 kg/m2 [facility] 12-20-2023 08:57-0400 Body weight 124.05 kg [facility] 12-20-2023 08:57-0400 Diastolic blood pressure 88 mm[Hg] [facility] 12-20-2023 08:57-0400 Heart rate 64 /min [facility] 12-20-2023 08:57-0400 Respiratory rate 12 /min [facility] 12-20-2023 08:57-0400 Systolic blood pressure 159 mm[Hg] [facility] 09-21-2023 09:08-0500 Body height 175.26 cm [facility] 09-21-2023 09:08-0500 Body mass index (BMI) [Ratio] 42.2 kg/m2 [facility] 09-21-2023 09:08-0500 Body weight 129.72 kg [facility] 09-21-2023 09:08-0500 Diastolic blood pressure 94 mm[Hg] [facility] 09-21-2023 09:08-0500 Heart rate 67 /min [facility] 09-21-2023 09:08-0500 Systolic blood pressure 165 mm[Hg] [facility] 12-11-2021 14:56-0400 Diastolic blood pressure 80 mm[Hg] Yasemin Dorseymetz [facility] 12-11-2021 14:56-0400 Mean blood pressure 101 mm[Hg] Yasemin Dorseymetz [facility] 12-11-2021 14:56-0400 Systolic blood pressure 142 mm[Hg] Yasemin Dorseymetz [facility] 12-11-2021 14:52-0400 Blood Pressure Location Yaseminjo Ordonezz [facility] 12-11-2021 14:52-0400 Body temperature 98.06 [degF] Yasemin Dorseymetz [facility] 12-11-2021 14:52-0400 Diastolic blood pressure 84 mm[Hg] Yasemin Dorseymetz [facility] 12-11-2021 14:52-0400 Heart rate 81 /min Yasemin Dorseymetz [facility] 12-11-2021 14:52-0400 SaO2% (BldA) [Mass fraction] 92 % Yaseminjo DorseyPaul [facility] 12-11-2021 14:52-0400 Systolic blood pressure 148 mm[Hg] Yasemin Miller [facility] 06-04-2021 11:30-0400 Body height 175.26 cm Cher Gregg Other [employer] Other 06-04-2021 11:30-0400 Body mass index (BMI) [Ratio] 41.34 kg/m2 Cher Gregg Other [employer] Other 06-04-2021 11:30-0400 Body temperature 96.8 [degF] Cher Gregg Other [employer] Other 06-04-2021 11:30-0400 Body weight 127.01 kg Cher Gregg Other [employer] Other 06-04-2021 11:30-0400 Respiratory rate 18 /min Cher Gregg Other [employer] Other 06-04-2021 11:30-0400 SaO2% (BldA) [Mass fraction] 97 % Cher Gregg Other [employer] Other Encounters Encounter Date Encounter Type Care Provider Facility Start: 11-29-2024 End: 11-29-2024 ambulatory Ascencion GUILLOYR Facility: [place] Start: 11-15-2024 End: 11-15-2024 ambulatory Ascencion GUILLORY Facility: [facility] Start: 11-08-2024 End: 11-08-2024 ambulatory Ascencion Guillory [facility] Work Phone: Start: 11-08-2024 End: 11-08-2024 Departed Referred Ascencion Guillory MD Work Phone: [facility] Start: 11-08-2024 End: 11-08-2024 ambulatory Ascencion GUILLORY Facility:[id number] Start: 10-24-2024 End: 10-24-2024 ambulatory Ascencion GUILLORY Facility:[facility] [place] Start: 10-12-2024 ambulatory Ascencion GUILLORY Facility:[facility] Start: 10-10-2024 End: 10-10-2024 ambulatory [facility] Work Phone: Start: 10-10-2024 End: 10-10-2024 Patient encounter procedure [facility] Work Phone: Start: 10-08-2024 Patient encounter procedure [facility] Start: 06-28-2024 End: 06-28-2024 ambulatory [facility] Work Phone: Start: 06-28-2024 End: 06-28-2024 Patient encounter procedure [facility] Work Phone: Start: 06-21-2024 Non-patient / Non-visit [facility] Work Phone: Start: 12-20-2023 End: 12-20-2023 ambulatory [facility] Work Phone: Start: 12-20-2023 End: 12-20-2023 Patient encounter procedure [facility] Work Phone: Start: 09-21-2023 End: 09-21-2023 ambulatory [facility] Work Phone: Start: 09-21-2023 End: 09-21-2023 Patient encounter procedure [facility] Work Phone: Start: 09-23-2022 End: 09-24-[address] TORIE FINNEY Facility:[facility] Start: 01-21-2022 End: 01-21-2022 ambulatory Cher Gregg Other [employer] Other Start: 01-21-2022 Nursing evaluation o f patient and report Cher Gregg [facility] Start: 12-11-2021 End: 12-11-2021 Patient encounter procedure Yasemin Skinny Miller [facility] Start: 06-04-2021 (URG) Urgent Care Visit Cher Mary[facility] Procedures Date Procedure Procedure Detail Performing Clinician Start: 09-23-[address] PRIETO IN [place] Comment on above: Performed By: #### D ATBMP, DATPSA #### [facility] [address] [address] [address] Rhea Alexandre Start: 09-30-2018 Colonoscopy Yasemin Sunita wise Comment on above: POLYPS X 3 Plan of Treatment Date Care Activity Detail Author Comprehensive metabo lic 2000 panel - Serum or Plasma [facility] Immunizations Immunization Date Immunization Notes Care Provider Fa cility 08-28-2021 COVID-19 mRNA, Comir rui (Pfizer) [facility] Payers Date Payer Category Payer Unknown [id number] Self-pay 1955 Unknown [id number] 1955 Unknown [id number] .16.8 [id number] 1955 Unknown [id number] .16.8 [id number] 1955 Unknown [id number] .16.8 [id number] 1955 Unknown [id number] 2.16.8 [id number] Blue Cross Blue Shield [id number] Medicare [id number] Unknown [id number] Unknown [id number] [id number] [id number] Social History Date Type Detail Facility Start: 12-11-2021 Tobacco smoking status Never s moked tobacco (finding) [facility] [employer] Other Tobacco smoking status Never [facility] Sex Assigned At Male [facility] [employer] [facility] Other Start: 09-17-2023 End: 09-17-2023 Tobacco smoking status NHIS Ex-smoker (finding) [facility] Start: 1955 Sex Assigned At Male [facility] Start: 06-28-2024 End: 11-09-2024 Sex Male (finding) [facility] Evaluation note 10-10-2024 Note Date & Type Note Facility 10-10-2024 Evaluation note Diagnosis Onset Date Resolution Adenomatous polyp of descending colon acute October 10, 2024 9:53am Chronic venous insufficiency acute October 10, 2024 9:53am IFG (impaired fasting glucose) acute October 10, 2024 9:53am Medicare annual wellness visit, subsequent acute October 10 9:53am Obesity acute October 10 9:53am Primary hypertension acute 2024 9:53am Screening PSA (prostate specific antigen) acute October 10 9:53am Umbilical hernia acute October 9:53am [facility] Work Phone: Evaluation note 01-21-2022 Note Date & Type Note Facility 01-21-2022 Evaluation note Encounter Date Diagnosis Assessment Notes Jan, Travel advice encounter (ICD-10 - Z71.84) [facility] [employer] Other Hospital Discharge instructions 12-11-2021 Note Date [...] 04/21/2005 Document Revised: 11/10/2018 Document Reviewed: 11/10/2018 [employer] Patient Education 2020 [employer]. Follow Up Care 12/08/2021 14:58:10 With:Yasemin Miller CNP Address: When:1 year only if needed [facility] Evaluation note 06-04-2021 Note Date [...] - [employer] Care At Home document. [employer] Other Evaluation + Plan note Note Date & Type Note Facility Evaluation + Plan note No data available for this section [facility] Evaluation note Note Date & Type Note Facility Evaluation note Diagnosis Onset Date Chronic venous insufficiency acute IFG (impaired fasting glucose) acute Primary hypertension acute Pure hypercholesterolemia, unspecified acute Screening PSA (prostate specific antigen) noneactive [facility] Work Phone: Evaluation note Note Date & Type Note Facility Evaluation note Diagnosis Onset Date Chronic venous insufficiency acute IFG (impaired fasting glucose) acute Primary hypertension acute Pure hypercholesterolemia, unspecified acute Medicare annual wellness visit, initial noneactive Screening PSA (prostate specific antigen) noneactive Chronic venous insufficiency acute Primary hypertension acute [facility] Work Phone: Evaluation note Note Date & Type Note Facility Evaluation note Diagnosis Onset Date Resolution Adenomatous polyp of descending colon acute June 28, 2024 9:52am Chronic venous insufficiency acute June 28, 2024 9:52am Hypercholesterolemia acute 2023 9:52am IFG (impaired fasting glucose) acute June 28, 2024 9:52am Obesity acute June 28, 2024 9:52am Primary hypertension acute 2023 9:52am [facility] Work Phone: Evaluation note Note Date & Type Note Facility Evaluation note Diagnosis Onset Date Resolution Adenomatous polyp of descending colon acute October 10, 2024 9:53am Chronic venous insufficiency acute October 10, 2024 9:53am Hypercholesterolemia acute Bob h 2024 9:53am IFG (impaired fasting glucose) acute October 10, 2024 9:53am Medicare annual wellness visit, subsequent acute October 10 9:53am Obesity acute October 10 9:53am Primary hypertension acute 2024 9:53am Screening PSA (prostate specific antigen) acute October 10 9:53am [facility] Work Phone: History general Narrative - Reported Note Date & Type Note Facility History general Narrative - Reported Type Surgical History vasectomy Surgical History tonsillectomy Hospitalization History see above [employer] Other Summary Purpose Family History No Family [...] Admit Date Adenomatous polyp of descending colon [facility] 2024 9:53am Chronic venous insufficiency October 10, 2024 9:53am Hypercholesterolemia October 10, 2024 9:5 3am IFG (impaired fasting glucose) October 9:53am Medicare annual wellness visit, subseque nt October 10, 2024 9:53am Obesity October 10, 2024 9:53 am Primary hypertension October 10, 2024 9:5 3am Screening PSA (prostate specific antigen ) October 10, 2024 9:53am Chief Complaint Admit Date Wellness October 10, 2024 9:53 am Unknown November 08, 2024 10:5 6am Reason for Visit Admit Date Adenomatous polyp of descending colon Ma h 2024 9:53am Chronic venous insufficiency October 10, 2024 9:53am IFG (impaired fasting glucose) October 9:53am Medicare annual wellness visit, subseque nt October 10, 2024 9:53am Obesity October 10, 2024 9:53 am Primary hypertension October 10, 2024 9:5 3am Screening PSA (prostate specific antigen ) October 10, 2024 9:53am Umbilical hernia October 10, 2024 9:53 am Additional Source Comments REASON FOR VISIT (unrecogniz ed section and content) #7 MAROON DODGE, COUGH, RUNN Y NOSECOVID TEST, DENIES SXS (unrecognized sect ion and content) No Status Records FoundNo Status Records FoundNo Status Records Found INFORMATION SOURCE (unrecogn ized section and content) DATE CREATED AUTHOR 09/24/2022 [facility] DATE CREATED AUTHOR AUTHOR'S ORGANIZ ATION 11/11/2024 [facility] DATE CREATED AUTHOR AUTHOR'S ORGANIZ ATION 11/30/2024 Amando Shiawassee [facility] Care Teams (unrecognized sec tion and content) Team Status: Active Member Role Status Jg Finney DO Primary Care Provider Active Team Status: Inactive Member Role Status Jg Finney DO Primary Care Provide r, Attending Provider Active Start: October 10, 2024 End: October 10, 2024 Team Status: Active Member Role Status Jg Finney DO Primary Care Provide r, Attending Provider Active Start: June 21, 2024 Team Status: Inactive Member Role Status Jg Finney DO Primary Care Provide r, Attending Provider Active Start: June 28, 2024 End: June 28, 2024 Team Status: Inactive Member Role Status Jg Finney DO Primary Care Provide r, Attending Provider Active Start: September 21, 2023 End: September 21, 2023 Team Status: Inactive Member Role Status Jg Finney DO Primary Care Provide r, Attending Provider Active Start: December 20, 2023 End: December 20, 2023 Team Status: Inactive Member Role Status Dates Ascencion Guillory MD FACS Attending Provider Active Start: November 08, 2024 End: November 08, 2024 Goals (unrecognized section and content) Goals may [...] BE BASED ON THE PRIMARY CLINICAL RECORDS. [facility] [employer] [facility]. provides no warranty or guarantee of the accuracy or completeness of information in this document.
== END 2025-04-02 09:20 | disposition home or self-care (01) ==
LOC: RAD 09:19
PROVIDERS: PCP Internal Medicine; Visit Provider Orthopaedic Surgery Orthopaedic Trauma
DX: M25.562 Pain in left knee (principal)
CPT/HCPCS: 73564